=== PATIENT | female | born 1955 | race Caucasian/White ===

== ENCOUNTER 2020-09-05 18:08 | Inpatient (IN) ==
[2020-09-05] MEDS ORDERED: DEXAMETHASONE 10 MG/ML VIAL IV ONE (18:48)
--- NOTE | 2020-09-05 18:51 | Emergency Department Note ---
HPI General Chief complaint: Cold/Flu Symptoms Stated complaint: COVID positive Time Seen by Provider: 09/05/20 18:26 Source: patient, family and RN notes reviewed Mode of arrival: ambulatory Limitations: no limitations History of Present Illness HPI Narrative: Narrative: This patient has been sick for about 10 days with a cough shortness of breath syndrome and tested positive for Covid last Saturday. She has been monitoring her O2 saturation at home and it was 82 to 83% on room air today. She is in the 90s on oxygen here. No headache nausea diarrhea. Onset (ago): day(s) Location: chest Related Data Home Medications Medication Instructions Recorded Confirmed [id number] 1 each PO DAILY 06/15/16 05/23/20 cholecalciferol (vitamin D3) 25 1,000 unit PO QDAY 08/04/19 05/23/20 mcg (1,000 unit) capsule losartan 100 mg tablet 100 mg PO QDAY 08/04/19 09/06/20 omeprazole 20 mg capsule,delayed 20 mg PO QDAY 08/04/19 05/23/20 release onabotulinumtoxinA 100 unit 100 unit IM .COMPLEX each 08/04/19 05/23/20 solution for injection potassium 99 mg tablet 99 mg PO QDAY 08/04/19 05/23/20 pantoprazole 40 mg tablet,delayed 20 mg PO DAILY tab 08/05/19 05/23/20 release carvedilol 12.5 mg PO BID 09/06/20 09/06/20 levothyroxine [Synthroid] 50 mcg PO DAILY 09/06/20 09/06/20 Previous Rx's Medication Instructions Recorded Auto-pap #1 ea 10/30/19 venlafaxine 25 mg tablet 25 mg PO .COMPLEX #14 tab 05/11/20 clonidine HCl 0.1 mg tablet 0.1 mg PO BID #60 tab 05/31/20 Allergies Allergy/AdvReac Type Severity Reaction Status Date / Time No Known Drug Allergies Allergy Unknown Verified 05/23/20 16:35 [NO KNOWN DRUG ALLERGIES] Review of Systems ROS ROS Narrative: Narrative: All systems ED: reviewed and negative except as stated. [facility] Narrative Patient History Narrative: Narrative: Medical/Surgical/Family History All Active Problems (Updated 09/06/20 @ 07:34 by Nelson Mccartney MD) Pneumonia due to 2019 novel coronavirus (Acute) History of cataract surgery (Chronic ~12/2014) History of colonoscopy (Chronic ~2016) History of laparoscopic cholecystectomy (Chronic ~02/08/12) Medication withdrawal (Chronic) Thyroid gland disease (Chronic) Hypersomnia (Chronic) Knee pain (Chronic) Blepharospasm (Chronic) Cough (Chronic) Skin cancer (Chronic) Diverticulosis (Chronic) Infectious mononucleosis (Chronic) Whooping cough (Chronic) Mumps (Chronic) Measles (Chronic) Body mass index (bmi) 30.0-30.9, adult (Chronic) Generalized anxiety disorder (Chronic) Chronic kidney disease, stage 2 (mild) (Chronic) Hypothyroidism, unspecified (Chronic) Essential (primary) hypertension (Chronic) Nicotine dependence (Chronic) Obesity, unspecified (Chronic) Polycystic kidney, adult type (Chronic) Nonrheumatic mitral valve disorder, unspecified (Chronic) Dysthymic disorder (Chronic) Dyspnea, unspecified (Chronic) Gastro-esophageal reflux disease without esophagitis (Chronic) Snoring (Chronic) Hematoma and contusion (Chronic) Fall (Chronic) Medical History (Updated 09/06/20 @ 07:34 by Nelson Mccartney MD) Blepharospasm (Chronic) Body mass index (bmi) 30.0-30.9, adult (Chronic) Chronic kidney disease, stage 2 (mild) (Chronic) Cough (Chronic) Diverticulosis (Chronic) Dyspnea, unspecified (Chronic) Dysthymic disorder (Chronic) Essential (primary) hypertension (Chronic) Fall (Chronic) Gastro-esophageal reflux disease without esophagitis (Chronic) Generalized anxiety disorder (Chronic) Hematoma and contusion (Chronic) Hypersomnia (Chronic) Hypothyroidism, unspecified (Chronic) Infectious mononucleosis (Chronic) Knee pain (Chronic) Measles (Chronic) Mumps (Chronic) Nicotine dependence (Chronic) Nonrheumatic mitral valve disorder, unspecified (Chronic) Obesity, unspecified (Chronic) Polycystic kidney, adult type (Chronic) Skin cancer (Chronic) Snoring (Chronic) Thyroid gland disease (Chronic) Whooping cough (Chronic) Surgical History (Updated 07/07/20 @ 13:15 by Kayley Alvarado) History of cataract surgery (Chronic ~12/2014) History of colonoscopy (Chronic ~2016) History of laparoscopic cholecystectomy (Chronic ~02/08/12) Family History Father , Age 62 Heart disease Mother , Age 83 Tumor Stroke Cancer of unknown origin Family/Other Heart disease "Siblings" Obesity "Siblings" Brother , age 62 Obesity Social History Smoking Status: Former smoker Alcohol Intake Frequency: a few times a month Substance Use: does not use Exam Narrative Narrative: Narrative: General Limitations: no limitations Head Head: Present atraumatic, normocephalic and normal inspection Eye Eye: Present normal appearance and EOMI; Absent scleral icterus and conjunctival injection ENT ENT: Present normal exam, normal oropharynx and mucous membranes moist Neck Neck: Present normal inspection and full ROM Chest Chest: Present normal inspection and symmetric chest wall rise Respiratory Respiratory: Present rales/crackles (Right sided) Cardiovascular Cardiovascular: Present regular rate, normal rhythm and normal heart sounds Adbominal Abdominal: Present soft; Absent distention and tenderness Extremities Extremities: Present normal inspection and full ROM; Absent pedal edema and pretibial edema Neurological Neurological: Present alert Psychiatric Psychiatric: Present normal affect Skin Skin: Present warm (WNL), dry and diaphoresis Course Vital Signs Vital signs: Vital Signs Temperature 98.6 F 09/05/20 18:28 Pulse Rate 78 09/05/20 18:28 Respiratory Rate 20 09/05/20 18:28 Blood Pressure 109/77 09/05/20 18:28 Pulse Oximetry (%) 88 L 09/05/20 18:28 Temperature 98.6 F 09/05/20 18:28 Pulse Rate 69 09/06/20 07:12 Respiratory Rate 20 09/05/20 18:28 Blood Pressure 122/68 09/06/20 07:12 Pulse Oximetry (%) 94 09/06/20 07:12 [facility] MDM Narrative Medical decision making narrative: Narrative: Patient is stable but does require supplemental oxygen so will be admitted. I discussed case with Dr. Oilveros who saw the patient and recommended remdesivir. She also got Decadron Rocephin and Zithromax. We will hold her in the ER tonight until we have staff available in the morning. Lab Data Lab results narrative: Rapid Covid testing was positive. Other lab work is unremarkable. Result diagrams: 09/05/20 18:56 09/05/20 18:56 Labs: Lab Results 09/05/20 09/05/20 09/05/20 Range/Units 18:56 18:56 18:56 WBC 5.4 (4.5-11.0) K/mcL RBC 4.05 (4.00-5.20) M/mcL Hgb 11.2 L (12.0-15.0) g/dL Hct 35.3 L (36.0-48.0) % MCV 87.2 (80.0-100.0) fL MCH 27.7 (26.0-34.0) pg MCHC 31.7 (31.0-36.0) g/dL RDW 14.6 H (11.5-14.5) % Plt Count 183 (140-440) K/mcL MPV 11.0 H (7.4-10.4) fL Neut % (Auto) 61.5 (38.0-78.0) % Lymph % (Auto) 26.8 (15.0-49.0) % [place] % (Auto) 9.5 (1.0-12.0) % Eos % (Auto) 2.0 (0.0-7.0) % Baso % (Auto) 0.2 (0.0-2.0) % Lymph # (Auto) 1.44 L (1.50-4.80) K/mcL [place] # (Auto) 0.51 (0.10-0.90) K/mcL Eos # (Auto) 0.11 (0.00-0.70) K/mcL Baso # (Auto) 0.01 (0.00-0.20) K/mcL Absolute Neutrophils 3.30 (1.80-8.00) K/mcL Sodium 134 (133-145) mmol/L Potassium 3.8 (3.3-5.1) mmol/L Chloride 97 (96-108) mmol/L Carbon Dioxide 24 (22-30) mmol/L Anion Gap 13.0 (8.0-16.0) BUN 17 (8-23) mg/dL Creatinine 1.1 (0.6-1.1) mg/dL GFR Calculation 52 Glucose 119 H (70-105) mg/dL Calcium 8.9 (8.6-10.4) mg/dL Total Bilirubin 0.3 (0.1-1.0) mg/dL AST 16 (<32) U/L ALT 12 (<40) U/L Alkaline Phosphatase 67 (39-117) U/L Troponin T < 0.01 (<0.03) ng/mL NT-Pro-B Natriuret Pep 38.4 (<125.0) pg/mL Total Protein 6.7 (5.9-8.4) gm/dL Albumin 3.7 (3.2-5.2) gm/dL Globulin 3.0 (2.2-3.7) gm/dL Albumin/Globulin Ratio 1.2 (1.0-2.3) Urine Color Urine Appearance (Clear) Urine pH (5.0-9.0) Ur Specific [place] (1.000-1.035) Urine Protein (Negative) mg/dL Urine Glucose (UA) (Negative) mg/dL Urine Ketones (Negative) mg/dL Urine Occult Blood (Negative) mg/dL Urine Nitrate (Negative) Urine Bilirubin (Negative) mg/dL Urine Urobilinogen mg/dL Ur Leukocyte Esterase (Negative) /ug Urine RBC (0-1) /hpf Urine WBC (0-4) /hpf Ur Squamous Epith Cells (0-4) /hpf Urine Bacteria (0) /hpf Urine Mucus (None) /hpf Ur Culture Indicated? 09/05/20 Range/Units 21:08 WBC (4.5-11.0) K/mcL RBC (4.00-5.20) M/mcL Hgb (12.0-15.0) g/dL Hct (36.0-48.0) % MCV (80.0-100.0) fL MCH (26.0-34.0) pg MCHC (31.0-36.0) g/dL RDW (11.5-14.5) % Plt Count (140-440) K/mcL MPV (7.4-10.4) fL Neut % (Auto) (38.0-78.0) % Lymph % (Auto) (15.0-49.0) % [place] % (Auto) (1.0-12.0) % Eos % (Auto) (0.0-7.0) % Baso % (Auto) (0.0-2.0) % Lymph # (Auto) (1.50-4.80) K/mcL [place] # (Auto) (0.10-0.90) K/mcL Eos # (Auto) (0.00-0.70) K/mcL Baso # (Auto) (0.00-0.20) K/mcL Absolute Neutrophils (1.80-8.00) K/mcL Sodium (133-145) mmol/L Potassium (3.3-5.1) mmol/L Chloride (96-108) mmol/L Carbon Dioxide (22-30) mmol/L Anion Gap (8.0-16.0) BUN (8-23) mg/dL Creatinine (0.6-1.1) mg/dL GFR Calculation Glucose (70-105) mg/dL Calcium (8.6-10.4) mg/dL Total Bilirubin (0.1-1.0) mg/dL AST (<32) U/L ALT (<40) U/L Alkaline Phosphatase (39-117) U/L Troponin T (<0.03) ng/mL NT-Pro-B Natriuret Pep (<125.0) pg/mL Total Protein (5.9-8.4) gm/dL Albumin (3.2-5.2) gm/dL Globulin (2.2-3.7) gm/dL Albumin/Globulin Ratio (1.0-2.3) Urine Color Yellow Urine Appearance Clear (Clear) Urine pH 6.0 (5.0-9.0) Ur Specific [place] 1.016 (1.000-1.035) Urine Protein 30 A (Negative) mg/dL Urine Glucose (UA) Negative (Negative) mg/dL Urine Ketones Negative (Negative) mg/dL Urine Occult Blood Negative (Negative) mg/dL Urine Nitrate Negative (Negative) Urine Bilirubin Negative (Negative) mg/dL Urine Urobilinogen Negative mg/dL Ur Leukocyte Esterase 250 A (Negative) /ug Urine RBC 0 (0-1) /hpf Urine WBC 21 H (0-4) /hpf Ur Squamous Epith Cells < 1 (0-4) /hpf Urine Bacteria None (0) /hpf Urine Mucus Few A (None) /hpf Ur Culture Indicated? yes Radiology Data Radiology results reviewed: Yes I reviewed the patient's radiology results. Radiology results narrative: Chest x-ray showed moderate bilateral infiltrates worse on the right. Discharge Plan Patient/Caregiver Discharge Instructions Pt seen by [facility]/PA only: No Clinical Impression: Pneumonia due to 2019 novel coronavirus Patient Disposition: Xfer As Inpt ([facility]) Condition: Fair Follow up with: Helder Mendez MD [Primary Care Provider] - Prescriptions: No Action (DME) Auto-pap Qty: 1 RF: 0 clonidine HCl 0.1 mg tablet 0.1 mg PO BID Qty: 60 RF: 0 Botox 100 unit recon soln 100 unit IM .COMPLEX RF: 0 losartan 100 mg tablet 100 mg PO QDAY RF: 0 omeprazole 20 mg capsule,delayed release(DR/EC) 20 mg PO QDAY RF: 0 cholecalciferol (vitamin D3) 1,000 unit capsule 1,000 unit PO QDAY RF: 0 potassium 99 mg tablet 99 mg PO QDAY RF: 0 venlafaxine 25 mg tablet 25 mg PO .COMPLEX Qty: 14 RF: 0 yz-cq-LT-vit P-[id number]-ico-coQ10 1 EACH capsule 1 each PO DAILY RF: 0 pantoprazole 40 mg tablet,delayed release (DR/EC) 20 mg PO DAILY RF: 0 carvedilol 12.5 mg tablet 12.5 mg PO BID RF: 0 levothyroxine [Synthroid] 50 mcg tablet 50 mcg PO DAILY RF: 0
--- NOTE | 2020-09-05 19:03 | XRay Report ---
HISTORY: Covid infection with shortness of breath FINDINGS: There are bilateral alveolar infiltrates with the greatest involvement in the lower lobes. There is milder involvement in the mid and upper lung joaquin. Left diaphragm is mildly elevated. No pleural effusion is seen. The heart size is normal. No adenopathy is detected. IMPRESSION: Moderate bilateral pneumonia, left worse than right Interpreted and Authenticated by: Cm Louis 09/05/20
[2020-09-05 19:32] LABS: Basophils # (Auto) 0.01 K/mcL (0.00-0.20); Basophils % (Auto) 0.2 % (0.0-2.0); Eosinophils # (Auto) 0.11 K/mcL (0.00-0.70); Hematocrit 35.3 % (36.0-48.0); Hemoglobin 11.2 g/dL (12.0-15.0); Lymphocytes # (Auto) 1.44 K/mcL (1.50-4.80); Lymphocytes % (Auto) 26.8 % (15.0-49.0); Mean Cell Volume 87.2 fL (80.0-100.0); Mean Corpuscular HGB Conc 31.7 g/dL (31.0-36.0); Monocytes # (Auto) 0.51 K/mcL (0.10-0.90); Monocytes % (Auto) 9.5 % (1.0-12.0); Neutrophils % (Auto) 61.5 % (38.0-78.0); Platelet Count 183 K/mcL (140-440); RBC 4.05 M/mcL (4.00-5.20); Red Cell Distribution Width 14.6 % (11.5-14.5); WBC 5.4 K/mcL (4.5-11.0)
[2020-09-05] MEDS: LACTATED RINGERS 1,000 ML IV SCH (19:34)
[2020-09-05 19:51] LABS: proBNP 38.4 pg/mL (<125.0)
[2020-09-05 19:54] LABS: ALT/SGPT 12 U/L (<40); AST/SGOT 16 U/L (<32); Albumin 3.7 gm/dL (3.2-5.2); Albumin/Globulin Ratio 1.2 (1.0-2.3); Alkaline Phosphatase 67 U/L (39-117); Bilirubin,Total 0.3 mg/dL (0.1-1.0); Blood Urea Nitrogen 17 mg/dL (8-23); Calcium 8.9 mg/dL (8.6-10.4); Carbon Dioxide 24 mmol/L (22-30); Chloride 97 mmol/L (96-108); Glomerular Filtration Rate 52; Glucose 119 mg/dL (70-105)
[2020-09-05] MEDS ORDERED: cefTRIAXone 2 GM in DEXTROSE 5% IN WATER 50 ML IV ONE (20:05)
[2020-09-05] MEDS ORDERED: AZITHROMYCIN 500 MG in DEXTROSE 5% IN WATER 250 ML IV ONE (20:05)
[2020-09-05] MEDS ORDERED: REMDESIVIR 200 MG in 0.9 % SODIUM CHLORIDE 250 ML IV ONE (20:10)
--- NOTE | 2020-09-05 21:08 | Internal Med History&Physical ---
HPI History of Present Illness Patient information: Note initiated : 09/05/20 at 9:04 pm Service Date, if different from initiated Date: [] Patient: Jyoti Martinez a 65 y/o F admitted on for COVID positive. Chief Complaint: URI symptoms/shortness of breath History of present illness: Ms. Martinez is a 65 year old F with a history of hypertension/hypothyroidism/anxiety disorder who presents to the ER with 10 days onset of URI symptoms with deterioration in respiratory status after noting her saturation dropping to mid 80s. She was tested positive for Covid 2 days prior to presentation. Initial work-up in the ER was consistent with profound hyp oxia requiring 3 L oxygen and bilateral pneumonia on chest imaging. Patient was started on remdesivir/dexamethasone and subsequently hospitalist service was consulted. At the time of my evaluation patient is alert and oriented. She was able to answer most of the questions. She lives with her and denies travel. She denies shaking chills, headache, photophobia endorses myalgia weakness fatigue. She denies productive cough. She endorses to loss of taste but denies rash, joint pain, diarrhea, dysuria. Review of systems 10 point review system was performed and is negative except for ones discussed above PFSH PFSH All Active Problems (Updated 09/06/20 @ 07:34 by Nelson Mccartney MD) Pneumonia due to 2019 novel coronavirus (Acute) History of cataract surgery (Chronic ~12/2014) History of colonoscopy (Chronic ~2016) History of laparoscopic cholecystectomy (Chronic ~02/08/12) Medication withdrawal (Chronic) Thyroid gland disease (Chronic) Hypersomnia (Chronic) Knee pain (Chronic) Blepharospasm (Chronic) Cough (Chronic) Skin cancer (Chronic) Diverticulosis (Chronic) Infectious mononucleosis (Chronic) Whooping cough (Chronic) Mumps (Chronic) Measles (Chronic) Body mass index (bmi) 30.0-30.9, adult (Chronic) Generalized anxiety disorder (Chronic) Chronic kidney disease, stage 2 (mild) (Chronic) Hypothyroidism, unspecified (Chronic) Essential (primary) hypertension (Chronic) Nicotine dependence (Chronic) Obesity, unspecified (Chronic) Polycystic kidney, adult type (Chronic) Nonrheumatic mitral valve disorder, unspecified (Chronic) Dysthymic disorder (Chronic) Dyspnea, unspecified (Chronic) Gastro-esophageal reflux disease without esophagitis (Chronic) Snoring (Chronic) Hematoma and contusion (Chronic) Fall (Chronic) Medical History (Updated 09/06/20 @ 07:34 by Nelson Mccartney MD) Blepharospasm (Chronic) Body mass index (bmi) 30.0-30.9, adult (Chronic) Chronic kidney disease, stage 2 (mild) (Chronic) Cough (Chronic) Diverticulosis (Chronic) Dyspnea, unspecified (Chronic) Dysthymic disorder (Chronic) Essential (primary) hypertension (Chronic) Fall (Chronic) Gastro-esophageal reflux disease without esophagitis (Chronic) Generalized anxiety disorder (Chronic) Hematoma and contusion (Chronic) Hypersomnia (Chronic) Hypothyroidism, unspecified (Chronic) Infectious mononucleosis (Chronic) Knee pain (Chronic) Measles (Chronic) Mumps (Chronic) Nicotine dependence (Chronic) Nonrheumatic mitral valve disorder, unspecified (Chronic) Obesity, unspecified (Chronic) Polycystic kidney, adult type (Chronic) Skin cancer (Chronic) Snoring (Chronic) Thyroid gland disease (Chronic) Whooping cough (Chronic) Surgical History (Updated 07/07/20 @ 13:15 by Kayley Alvarado) History of cataract surgery (Chronic ~12/2014) History of colonoscopy (Chronic ~2016) History of laparoscopic cholecystectomy (Chronic ~02/08/12) Family History Father , Age 62 Heart disease Mother , Age 83 Tumor Stroke Cancer of unknown origin Family/Other Heart disease "Siblings" Obesity "Siblings" Brother , age 62 Obesity Social History marital status: occupational status: employed occupation: [employer] smoking status: Former smoker smoking status stop date: 10/14/10 alcohol intake frequency: a few times a month substance use type: does not use MEDS/ALLERGIES Home Medications and Allergies Home Medications Medication Instructions Recorded Confirmed Type losartan 100 mg tablet 100 mg PO QDAY 08/04/19 09/06/20 History omeprazole 20 mg capsule,delayed 20 mg PO QDAY 08/04/19 09/06/20 History release onabotulinumtoxinA 100 unit 100 unit IM .COMPLEX each 08/04/19 09/06/20 History solution for injection Auto-pap #1 ea 10/30/19 09/06/20 Rx clonidine HCl 0.1 mg tablet 0.1 mg PO BID #60 tab 05/31/20 09/06/20 Rx amlodipine 5 mg PO DAILY 09/06/20 09/06/20 History benzonatate 100 mg PO Q8HP PRN 09/06/20 09/06/20 History carvedilol 12.5 mg PO BID 09/06/20 09/06/20 History hydrochlorothiazide 12.5 mg PO DAILY 09/06/20 09/06/20 History levothyroxine [Synthroid] 50 mcg PO DAILY 09/06/20 09/06/20 History promethazine-DM 5 ml PO Q6HP PRN 09/06/20 09/06/20 History venlafaxine 150 mg PO DAILY 09/06/20 09/06/20 History Allergies Allergy/AdvReac Type Severity Reaction Status Date / Time No Known Drug Allergies Allergy Unknown Verified 05/23/20 16:35 [NO KNOWN DRUG ALLERGIES] EXAM Constitutional Vitals: Temp Pulse Resp BP Pulse Ox 98.6 F 76 20 115/94 92 09/05/20 18:28 09/05/20 20:16 09/05/20 18:28 09/05/20 20:16 09/05/20 20:16 Alert oriented Head normocephalic Oral cavity moist No ear nose discharge Eye movement symmetrical Neck supple no lymphadenopathy S1-S2 occasionally irregular Nonlabored breathing on 3 L oxygen Nondistended nontender abdomen Lower extremity no cyanosis clubbing or joint swelling Skin no suspicious lesion Psych anxious no hallucination delusion Neuro normal higher function DATA Data Completed and Pending Labs: Labs from last 24 hours 09/05/20 09/05/20 09/05/20 18:56 18:56 18:56 WBC 5.4 RBC 4.05 Hgb 11.2 L Hct 35.3 L MCV 87.2 MCH 27.7 MCHC 31.7 RDW 14.6 H Plt Count 183 MPV 11.0 H Neut % (Auto) 61.5 Lymph % (Auto) 26.8 [place] % (Auto) 9.5 Eos % (Auto) 2.0 Baso % (Auto) 0.2 Lymph # (Auto) 1.44 L [place] # (Auto) 0.51 Eos # (Auto) 0.11 Baso # (Auto) 0.01 Absolute Neutrophils 3.30 Sodium 134 Potassium 3.8 Chloride 97 Carbon Dioxide 24 Anion Gap 13.0 BUN 17 Creatinine 1.1 GFR Calculation 52 Glucose 119 H Calcium 8.9 Total Bilirubin 0.3 AST 16 ALT 12 Alkaline Phosphatase 67 Troponin T < 0.01 NT-Pro-B Natriuret Pep 38.4 Total Protein 6.7 Albumin 3.7 Globulin 3.0 Albumin/Globulin Ratio 1.2 A/P Narrative A/P Narrative: * COVID-19 pneumonia-initiate remdesivir/dexamethasone. Continue Covid precautions. Admit to PCU in light of acute hypoxic respiratory failure * Acute hypoxic respiratory failure secondary to Covid pneumonia. Currently on 3 L oxygen. Multifocal bilateral chest infiltrates. Continue low flow oxygen/bronchodilators * History of hypertension continue home dose Coreg/losartan/thiazide/amlodipine * Hypothyroidism continue thyroxine * GERD continue PPI * anxiety disorder continue venlafaxine * Full code * Prophylaxis heparin Plan * Inpatient PCU admission * Supplemental oxygen * Remdesivir/dexamethasone * Wean oxygen as tolerated * Inflammatory marker follow-up * Pre-existing medical condition management home meds * nutrition support Time Spent With Patient Time: Total time spent is greater than 50% in coordination of care (as documented) at patient's floor/unit and/or counseling patient:
[2020-09-05 21:43] LABS: Appearance,Urine CLEAR (Clear); Bilirubin,Urine Negative (Negative); Color,Urine YELLOW; Culture Indicated,Urine yes; Glucose,Urine (UA) Negative (Negative); Ketones,Urine Negative (Negative); Leukocyte Esterase,Urine 250 /ug (Negative); Mucus,Urine FEW /hpf; Nitrate,Urine Negative (Negative); Protein,Urine 30 mg/dL (Negative); Specific Gravity,Urine 1.016 (1.000-1.035); Urine Blood Negative (Negative); Urine RBC 0 /hpf (0-1); Urine Squamous Epithelial Cell < 1 /hpf (0-4); Urine WBC 21 /hpf (0-4); Urobilinogen,Urine Negative
[2020-09-05] MEDS ORDERED: ONDANSETRON 4 MG/2 ML VIAL IV ONE (22:24)
[2020-09-05] MEDS ORDERED: HYDROmorphone 0.5 MG/0.5 ML SYRINGE IV PRN (22:24)
[2020-09-06] MEDS ORDERED: POLYETHYLENE GLYCOL 3350 17 GM PACKET PO PRN ×2 (07:47→08:00)
[2020-09-06] MEDS ORDERED: ACETAMINOPHEN 650 MG/65 ML BOTTLE IV PRN ×2 (07:47→08:00)
[2020-09-06] MEDS ORDERED: POTASSIUM CHLORIDE 40 MEQ in DEXTROSE 5% IN WATER 500 ML IV PRN ×2 (07:47→08:00)
[2020-09-06] MEDS ORDERED: cefTRIAXone 2 GM in DEXTROSE 5% IN WATER 50 ML IV SCH ×2 (07:47→15:00)
[2020-09-06] MEDS ORDERED: POTASSIUM CHLORIDE 20 MEQ PACKET PO PRN ×2 (07:47→08:00)
[2020-09-06] MEDS ORDERED: REMDESIVIR 100 MG in 0.9 % SODIUM CHLORIDE 250 ML IV SCH (07:47)
[2020-09-06] MEDS ORDERED: ONDANSETRON 4 MG ODT TABLET SL PRN ×2 (07:47→08:00)
[2020-09-06] MEDS ORDERED: MAGNESIUM SULFATE 2 GM/50 ML BAG IV PRN ×2 (07:47→08:00)
[2020-09-06] MEDS ORDERED: ONDANSETRON 4 MG/2 ML VIAL IV PRN ×2 (07:47→08:00)
[2020-09-06] MEDS ORDERED: hydrALAZINE 20 MG/ML VIAL IV PRN ×2 (07:47→08:00)
[2020-09-06] MEDS ORDERED: MELATONIN 3 MG TABLET PO PRN ×2 (07:47→08:00)
[2020-09-06] MEDS ORDERED: BISACODYL 10 MG SUPP.RECT PR PRN ×2 (07:47→08:00)
[2020-09-06] MEDS ORDERED: METOPROLOL TARTRATE 5 MG/5 ML VIAL IV PRN ×2 (07:47→08:00)
[2020-09-06] MEDS ORDERED: ACETAMINOPHEN 325 MG TABLET PO PRN ×2 (07:47→08:00)
[2020-09-06] MEDS ORDERED: HEPARIN 5,000 UNIT/ML VIAL SQ SCH (09:00)
[2020-09-06] MEDS ORDERED: CARVEDILOL 12.5 MG TABLET PO SCH (09:00)
[2020-09-06] MEDS ORDERED: DEXAMETHASONE 4 MG TABLET PO SCH (09:00)
[2020-09-06] MEDS ORDERED: LOSARTAN 50 MG TABLET PO SCH (09:00)
[2020-09-06] MEDS ORDERED: MULTIVIT,THER IRON,CA,FA & MIN 1 TABLET PO SCH (09:00)
[2020-09-06] MEDS ORDERED: HYDROXYCHLOROQUINE 200 MG TABLET PO SCH (09:00)
[2020-09-06] MEDS ORDERED: DOCUSATE SODIUM 100 MG CAPSULE PO SCH (09:00)
[2020-09-06] MEDS ORDERED: LEVOTHYROXINE 50 MCG TABLET PO SCH ×2 (09:00)
[2020-09-06] MEDS ORDERED: cloNIDine HCL 0.1 MG TABLET PO SCH ×2 (09:00)
[2020-09-06] MEDS: LACTATED RINGERS 1,000 ML IV SCH ×3 (09:45→09:51)
[2020-09-06] MEDS: cefTRIAXone 2 GM in DEXTROSE 5% IN WATER 50 ML IV SCH (10:31)
[2020-09-06] MEDS: HEPARIN 5,000 UNIT/ML VIAL SQ SCH ×2 (10:35→20:30)
[2020-09-06] MEDS: CARVEDILOL 12.5 MG TABLET PO SCH ×2 (10:35→17:05)
[2020-09-06] MEDS: DOCUSATE SODIUM 100 MG CAPSULE PO SCH ×2 (10:35→20:30)
[2020-09-06] MEDS: LOSARTAN 50 MG TABLET PO SCH (10:36)
[2020-09-06] MEDS: MULTIVIT,THER IRON,CA,FA & MIN 1 TABLET PO SCH (10:36)
[2020-09-06] MEDS: DEXAMETHASONE 4 MG TABLET PO SCH (11:06)
[2020-09-06] MEDS: 0.9 % SODIUM CHLORIDE 10 ML SYRINGE IV SCH ×2 (12:59→20:31)
[2020-09-06] MEDS: REMDESIVIR 100 MG in 0.9 % SODIUM CHLORIDE 250 ML IV SCH (12:59)
[2020-09-06] MEDS ORDERED: BENZONATATE 100 MG CAPSULE PO PRN (13:24)
[2020-09-06] MEDS ORDERED: 0.9 % SODIUM CHLORIDE 10 ML SYRINGE IV SCH (14:00)
--- NOTE | 2020-09-06 14:11 | Internal Med Progress Note ---
SUBJECTIVE Subjective Patient information: Note initiated : 09/06/20 at 2:09 pm Service Date, if different from initiated Date: [] Patient: Jyoti Martinez a 65 y/o F admitted on 09/06/20 for COVID Positive, Pneumonia. Chief Complaint: History of present illness: Ms. Martinez is a 65 year old F with a history of hypertension/hypothyroidism/anxiety disorder who presents to the ER with 10 days onset of URI symptoms with deterioration in respiratory status after noting her saturation dropping to mid 80s. She was tested positive for Covid 2 days prior to presentation. Initial work-up in the ER was consistent with profound hypoxia requiring 3 L oxygen and bilateral pneumonia on chest imaging. Patient was started on remdesivir/dexamethasone and subsequently hospitalist service was consulted. At the time of my evaluation patient is alert and oriented. She was able to answer most of the questions. She lives with her and denies travel. She denies shaking chills, headache, photophobia endorses myalgia weakness fatigue. She denies productive cough. She endorses to loss of taste but denies rash, joint pain, diarrhea, dysuria. 09/06-patient clinically deteriorating with increasing need for oxygen at 6 L. Overnight afebrile.Stable labs and hemodynamics. Remdesivir day 2/de xamethasone. Restart home medications. UA pyuria. Initiate antibiotic coverage. Constitutional Vitals: Vital Signs Temp Pulse Resp BP Pulse Ox 98.1 F 78 17 117/75 92 09/06/20 13:29 09/06/20 13:29 09/06/20 13:29 09/06/20 12:01 09/06/20 13:29 Period Temp Pulse Resp BP Sys/Srivastava Pulse Ox Last 24 Hr 97.8 F-98.6 F 59-86 17-22 104-135/61-94 87-99 Intake and Output 09/06/20 09/06/20 09/06/20 05:59 13:59 21:59 Intake Total 1500 240 Balance 1500 240 Weight 92.986 kg Patient Weight 09/07/20 05:59 Weight 92.986 kg On 6 L oxygen Labored breathing No anxiety No lymphedema Intake & Output: Intake & Output 09/06/20 09/06/20 09/06/20 05:59 13:59 21:59 Intake Total 1500 240 Balance 1500 240 Weight 92.986 kg Intake: IV 1500 Zithromax 500 mg In Dextrose 5% 250 in Water 250 ml @ 250 mls/hr IV ONCE ONE Rx#:[id number] Lactated Ringers 1,000 ml @ 250 1000 mls/hr IV .Q4H [facility] Rx#: [id number] Veklury 200 mg In Sodium 250 Chloride 0.9% 250 ml @ 500 mls/ hr IV ONCE ONE Rx#:[id number] Oral 240 Other: Meal Breakfast Percent of Meal Consumed 100% OBJ DATA Labs CBC & Chem 7: 09/05/20 18:56 09/05/20 18:56 Labs: Abnormal Lab Results 09/05/20 09/05/20 09/05/20 21:08 18:56 18:56 Hgb 11.2 L Hct 35.3 L RDW 14.6 H MPV 11.0 H Lymph # (Auto) 1.44 L Glucose 119 H Urine Protein 30 A Ur Leukocyte Esterase 250 A Urine WBC 21 H Urine Mucus Few A Meds: Medications Acetaminophen (Tylenol) 650 mg PO Q4-6HP PRN; Protocol PRN Reason: Per Pain Protocol/Fever > 101 Amlodipine Besylate (Norvasc) 5 mg PO DAILY [facility] Benzonatate (Tessalon) 100 mg PO Q8HP PRN PRN Reason: Cough Bisacodyl (Dulcolax) 10 mg MT Q2-3DAYS PRN PRN Reason: Constipation [facility] Last Admin: 09/06/20 10:35 Dose: 12.5 mg Documented by: Dexamethasone (Decadron) 6 mg PO DAILY [facility] Last Admin: 09/06/20 11:06 Dose: 6 mg Documented by: Docusate Sodium (Colace) 100 mg PO BID [facility] Last Admin: 09/06/20 10:35 Dose: 100 mg Documented by: Heparin Sodium (Porcine) (Heparin) 5,000 unit SQ Q12 [facility] Last Admin: 09/06/20 10:35 Dose: 5,000 unit Documented by: Hydralazine HCl (Apresoline) 10 mg IV Q4-6HP PRN PRN Reason: Hypertension Hydrochlorothiazide (Oretic) 12.5 mg PO DAILY [facility] Ceftriaxone Sodium 2 gm/ (Dextrose) 50 mls @ 100 mls/hr IV Q24H [facility]; Protocol Last Admin: 09/06/20 10:31 Dose: 100 mls/hr Documented by: REMDESIVIR 100 mg/ Sodium (Chloride) 250 mls @ 500 mls/hr IV Q24H [facility] Stop: 09/09/20 13:29 Last Admin: 09/06/20 12:59 Dose: 500 mls/hr Documented by: Acetaminophen (Ofirmev) 650 mg in 65 mls @ 130 mls/hr IV Q6HP PRN; Protocol PRN Reason: Per Pain Protocol/Fever > 101 Magnesium Sulfate (Magnesium Sulfate) 2 gm in 50 mls @ 50 mls/hr IV UD PRN PRN Reason: MG = or < 1.7 Potassium Chloride 40 meq/ (Dextrose) 520 mls @ 130 mls/hr IV UD PRN PRN Reason: K+ = or < 3.5 Iron Carb/Multivit/Roane/Folic Acid (Multivitamin W/Minerals) 1 tab PO DAILY [facility] Last Admin: 09/06/20 10:36 Dose: 1 tab Documented by: Levothyroxine Sodium (Synthroid) 50 mcg PO DAILY [facility] Last Admin: 09/06/20 11:06 Dose: 50 mcg Documented by: Losartan Potassium (Cozaar) 100 mg PO DAILY [facility] Last Admin: 09/06/20 10:36 Dose: 100 mg Documented by: Melatonin (Melatonin 3mg Tablet) 3 mg PO HSP PRN PRN Reason: Insomnia Metoprolol Tartrate (Lopressor) 5 mg IV Q5M PRN PRN Reason: Heart Rate > 140 bpm Omeprazole (Prilosec) 20 mg PO QDAY [facility] Ondansetron HCl (Zofran Odt) 4 mg SL Q4-6HP PRN; Protocol PRN Reason: Nausea And Vomiting Ondansetron HCl (Zofran) 4 mg IV Q4-6HP PRN; Protocol PRN Reason: Nausea And Vomiting Polyethylene Glycol (Miralax) 17 gm PO DAILYP PRN PRN Reason: Constipation Potassium Chloride (Klor-Con) 40 meq PO DAILYP PRN PRN Reason: K+ < 3.5 Senna/Docusate Sodium (Senna Plus Tablet) 1 tab PO [facility] Sodium Chloride (Saline Flush) 10 ml IV Q8 [facility] Last Admin: 09/06/20 12:59 Dose: 10 ml Documented by: Venlafaxine HCl (Effexor Xr) 150 mg PO DAILY [facility] A/P Narrative A/P Narrative: * COVID-19 pneumonia-initiate remdesivir/dexamethasone. Continue Covid precautions. * Acute hypoxic respiratory failure secondary to Covid pneumonia. Worsening now on 6 L O2 . Multifocal bilateral chest infiltrates. Continue low flow oxygen/bronchodilators, serial imaging * Acute cystitis with pyuria. Start antibiotic coverage * History of hypertension stable on home dose Coreg/losartan/thiazide/amlodipine * Hypothyroidism continue thyroxine * GERD continue PPI * anxiety disorder continue venlafaxine * Full code * Prophylaxis heparin Plan * Low-flow oxygen * Remdesivir/dexamethasone * Start antibiotic coverage * Inflammatory marker follow-up * Pre-existing medical condition management home meds * nutrition support Time Spent With Patient Time: Total time spent is greater than 50% in coordination of care (as documented) at patient's floor/unit and/or counseling patient: QUALITY VTE Deep Vein Thrombosis/Pulmonary Embolism Present on Admission: No
[2020-09-06 15:45] LABS: Ferritin 98.4 ng/mL (30.0-400.0)
[2020-09-06] MEDS: SENNOSIDES/DOCUSATE SODIUM 1 TAB TABLET PO SCH (20:30)
[2020-09-06] MEDS ORDERED: SENNOSIDES/DOCUSATE SODIUM 1 TAB TABLET PO SCH (21:00)
[2020-09-07] MEDS: 0.9 % SODIUM CHLORIDE 10 ML SYRINGE IV SCH ×3 (05:24→20:29)
[2020-09-07 06:32] LABS: Basophils # (Auto) 0.01 K/mcL (0.00-0.20); Basophils % (Auto) 0.2 % (0.0-2.0); Eosinophils # (Auto) 0 K/mcL (0.00-0.70); Eosinophils % (Auto) 0 % (0.0-7.0); Hematocrit 37.1 % (36.0-48.0); Hemoglobin 11.8 g/dL (12.0-15.0); Lymphocytes # (Auto) 1.42 K/mcL (1.50-4.80); Lymphocytes % (Auto) 22.1 % (15.0-49.0); Mean Cell Volume 86.3 fL (80.0-100.0); Mean Corpuscular HGB Conc 31.8 g/dL (31.0-36.0); Mean Platelet Volume 11.3 fL (7.4-10.4); Monocytes % (Auto) 7.8 % (1.0-12.0); Neutrophils % (Auto) 69.9 % (38.0-78.0); Platelet Count 204 K/mcL (140-440); Red Cell Distribution Width 14.4 % (11.5-14.5); WBC 6.4 K/mcL (4.5-11.0)
[2020-09-07 07:20] LABS: ALT/SGPT 12 U/L (<40); AST/SGOT 14 U/L (<32); Albumin 3.8 gm/dL (3.2-5.2); Albumin/Globulin Ratio 1.2 (1.0-2.3); Alkaline Phosphatase 63 U/L (39-117); Bilirubin,Direct < 0.2 mg/dL (<0.3); Bilirubin,Total 0.2 mg/dL (0.1-1.0); Blood Urea Nitrogen 28 mg/dL (8-23); Calcium 8.9 mg/dL (8.6-10.4); Carbon Dioxide 25 mmol/L (22-30); Chloride 105 mmol/L (96-108); Globulin 3.1 gm/dL (2.2-3.7); Glomerular Filtration Rate 59; Glucose 135 mg/dL (70-105); Lactate Dehydrogenase 201 U/L (135-225); Phosphorous 4.4 mg/dL (2.5-4.5); Triglycerides 57 mg/dL (<150)
[2020-09-07] MEDS: LEVOTHYROXINE 50 MCG TABLET PO SCH (08:02)
[2020-09-07] MEDS: OMEPRAZOLE 20 MG CAPSULE PO SCH (08:02)
[2020-09-07] MEDS: CARVEDILOL 12.5 MG TABLET PO SCH ×2 (08:02→17:31)
[2020-09-07] MEDS: LOSARTAN 50 MG TABLET PO SCH (08:23)
[2020-09-07] MEDS: HEPARIN 5,000 UNIT/ML VIAL SQ SCH ×2 (08:23→20:29)
[2020-09-07] MEDS: DEXAMETHASONE 4 MG TABLET PO SCH (08:23)
[2020-09-07] MEDS: MULTIVIT,THER IRON,CA,FA & MIN 1 TABLET PO SCH (08:24)
[2020-09-07] MEDS: VENLAFAXINE 150 MG CAP.XL.24H PO SCH (08:24)
[2020-09-07] MEDS: HYDROCHLOROTHIAZIDE 12.5 MG CAPSULE PO SCH (08:24)
[2020-09-07] MEDS: DOCUSATE SODIUM 100 MG CAPSULE PO SCH ×2 (08:24→20:29)
[2020-09-07] MEDS: amLODIPine 5 MG TABLET PO SCH (08:24)
[2020-09-07] MEDS: cefTRIAXone 2 GM in DEXTROSE 5% IN WATER 50 ML IV SCH (08:26)
[2020-09-07] MEDS ORDERED: OMEPRAZOLE 20 MG CAPSULE PO SCH (09:00)
[2020-09-07] MEDS: REMDESIVIR 100 MG in 0.9 % SODIUM CHLORIDE 250 ML IV SCH (09:15)
--- NOTE | 2020-09-07 10:42 | Internal Med Progress Note ---
SUBJECTIVE Subjective Patient information: Note initiated : 09/07/20 at 10:39 am Service Date, if different from initiated Date: [] Patient: Jyoti Martinez a 65 y/o F admitted on 09/06/20 for COVID Positive, Pneumonia. Chief Complaint: [] Interval history: Ms. Martinez is a 65 year old F with a history of hypertension/hypothyroidism/anxiety disorder who presents to the ER with 10 days onset of URI symptoms with deterioration in respiratory status after noting her saturation dropping to mid 80s. She was tested positive for Covid 2 days prior to presentation. Initial work-up in the ER was consistent with profound hypoxia requiring 3 L oxygen and bilateral pneumonia on chest imaging. Patient was started on remdesivir/dexamethasone and subsequently hospitalist service was consulted. At the time of my evaluation patient is alert and oriented. She was able to answer most of the questions. She lives with her and denies travel. She denies shaking chills, headache, photophobia endorses myalgia weakness fatigue. She denies productive cough. She endorses to loss of taste but denies rash, joint pain, diarrhea, dysuria. 09/06-patient clinically deteriorating with increasing need for oxygen at 6 L. Overnight afebrile.Stable labs and hemodynamics. Remdesivir day 2/dexamethasone. Restart home medications. UA pyuria. Initiate antibiotic coverage. 09/07-patient clinically improving. No overnight events. Currently on 3 L o xygen down from 6 L the previous day. On day 3/5 remdesivir. Maintaining Covid precautions. Feels better than previous day and in good spirits. No overnight telemetry events or concerns per staff. No fever chills. Constitutional Vitals: Vital Signs Temp Pulse Resp BP Pulse Ox 97.5 F 58 L 16 132/83 95 09/07/20 04:01 09/07/20 06:21 09/07/20 08:01 09/07/20 08:01 09/07/20 08:01 Period Temp Pulse Resp BP Sys/Srivastava Pulse Ox Last 24 Hr 97.2 F-98.2 F 56-85 13-27 110-132/73-105 88-100 Intake and Output 09/06/20 09/07/20 09/07/20 21:59 05:59 13:59 Intake Total 480 Output Total 500 850 Balance 480 -500 -850 Weight 95.708 kg Alert oriented Nonlabored breathing on 3 L oxygen No anxiety In good spirits Intake & Output: Intake & Output 09/06/20 09/07/20 09/07/20 21:59 05:59 13:59 Intake Total 480 Output Total 500 850 Balance 480 -500 -850 Weight 95.708 kg Intake: Oral 480 Output: Void Amount 500 850 Other: Meal Dinner Percent of Meal Consumed 100% Feeding Ability Independent Urine Appearance Clear Urine Color Bright Yellow # Voids 1 OBJ DATA Labs CBC & Chem 7: 09/07/20 05:13 09/07/20 05:13 Labs: Abnormal Lab Results 09/07/20 09/07/20 09/05/20 05:13 05:13 21:08 Hgb 11.8 L Hct RDW MPV 11.3 H Lymph # (Auto) 1.42 L BUN 28 H Glucose 135 H C-Reactive Protein 2.70 H Urine Protein 30 A Ur Leukocyte Esterase 250 A Urine WBC 21 H Urine Mucus Few A 09/05/20 09/05/20 18:56 18:56 Hgb 11.2 L Hct 35.3 L RDW 14.6 H MPV 11.0 H Lymph # (Auto) 1.44 L BUN Glucose 119 H C-Reactive Protein Urine Protein Ur Leukocyte Esterase Urine WBC Urine Mucus Meds: Medications Acetaminophen (Tylenol) 650 mg PO Q4-6HP PRN; Protocol PRN Reason: Per Pain Protocol/Fever > 101 Amlodipine Besylate (Norvasc) 5 mg PO DAILY [facility] Last Admin: 09/07/20 08:24 Dose: 5 mg Documented by: Benzonatate (Tessalon) 100 mg PO Q8HP PRN PRN Reason: Cough Bisacodyl (Dulcolax) 10 mg ID Q2-3DAYS PRN PRN Reason: Constipation [facility] Last Admin: 09/07/20 08:02 Dose: 12.5 mg Documented by: Dexamethasone (Decadron) 6 mg PO DAILY [facility] Last Admin: 09/07/20 08:23 Dose: 6 mg Documented by: Docusate Sodium (Colace) 100 mg PO BID [facility] Last Admin: 09/07/20 08:24 Dose: 100 mg Documented by: Heparin Sodium (Porcine) (Heparin) 5,000 unit SQ Q12 [facility] Last Admin: 09/07/20 08:23 Dose: 5,000 unit Documented by: Hydralazine HCl (Apresoline) 10 mg IV Q4-6HP PRN PRN Reason: Hypertension Hydrochlorothiazide (Oretic) 12.5 mg PO DAILY [facility] Last Admin: 09/07/20 08:24 Dose: 12.5 mg Documented by: Ceftriaxone Sodium 2 gm/ (Dextrose) 50 mls @ 100 mls/hr IV Q24H [facility]; Protocol Last Admin: 09/07/20 08:26 Dose: 100 mls/hr Documented by: REMDESIVIR 100 mg/ Sodium (Chloride) 250 mls @ 500 mls/hr IV Q24H [facility] Stop: 09/09/20 13:29 Last Admin: 09/07/20 09:15 Dose: 100 mls/hr Documented by: Acetaminophen (Ofirmev) 650 mg in 65 mls @ 130 mls/hr IV Q6HP PRN; Protocol PRN Reason: Per Pain Protocol/Fever > 101 Magnesium Sulfate (Magnesium Sulfate) 2 gm in 50 mls @ 50 mls/hr IV UD PRN PRN Reason: MG = or < 1.7 Potassium Chloride 40 meq/ (Dextrose) 520 mls @ 130 mls/hr IV UD PRN PRN Reason: K+ = or < 3.5 Iron Carb/Multivit/Hard Candy Spinner/Folic Acid (Multivitamin W/Minerals) 1 tab PO DAILY [facility] Last Admin: 09/07/20 08:24 Dose: 1 tab Documented by: Levothyroxine Sodium (Synthroid) 50 mcg PO QAMAC [facility] Last Admin: 09/07/20 08:02 Dose: 50 mcg Documented by: Losartan Potassium (Cozaar) 100 mg PO DAILY [facility] Last Admin: 09/07/20 08:23 Dose: 100 mg Documented by: Melatonin (Melatonin 3mg Tablet) 3 mg PO HSP PRN PRN Reason: Insomnia Metoprolol Tartrate (Lopressor) 5 mg IV Q5M PRN PRN Reason: Heart Rate > 140 bpm Omeprazole (Prilosec) 20 mg PO QAMCC [facility] Last Admin: 09/07/20 08:02 Dose: 20 mg Documented by: Ondansetron HCl (Zofran Odt) 4 mg SL Q4-6HP PRN; Protocol PRN Reason: Nausea And Vomiting Ondansetron HCl (Zofran) 4 mg IV Q4-6HP PRN; Protocol PRN Reason: Nausea And Vomiting Polyethylene Glycol (Miralax) 17 gm PO DAILYP PRN PRN Reason: Constipation Potassium Chloride (Klor-Con) 40 meq PO DAILYP PRN PRN Reason: K+ < 3.5 Senna/Docusate Sodium (Senna Plus Tablet) 1 tab PO HS [facility] Last Admin: 09/06/20 20:30 Dose: 1 tab Documented by: Sodium Chloride (Saline Flush) 10 ml IV Q8 [facility] Last Admin: 09/07/20 05:24 Dose: 10 ml Documented by: Venlafaxine HCl (Effexor Xr) 150 mg PO DAILY [facility] Last Admin: 09/07/20 08:24 Dose: 150 mg Documented by: A/P Narrative A/P Narrative: * COVID-19 pneumonia-clinical improvement noted on day 3 remdesivir/dexamethasone. Continue Covid precautions. * Acute hypoxic respiratory failure secondary to Covid pneumonia. Clinically improving now requiring 3 L oxygen. Anticipate discharge in 48 hours following ablation of remdesivir on home oxygen. Multifocal bilateral chest infiltrates on imaging. * Acute cystitis with pyuria. Clinically improving on antibiotic coverage * History of hypertension stable on home dose Coreg/losartan/thiazide/amlodipine * Hypothyroidism continue thyroxine * GERD continue PPI * anxiety disorder continue venlafaxine * Full code * Prophylaxis heparin Plan * Continue weaning low-flow oxygen * Remdesivir/dexamethasone/Rocephin * Pre-existing medical condition management home meds * nutrition support/therapies * Discharge planning Time Spent With Patient Time: Total time spent is greater than 50% in coordination of care (as documented) at patient's floor/unit and/or counseling patient: QUALITY VTE Deep Vein Thrombosis/Pulmonary Embolism Present on Admission: No
[2020-09-07] MEDS: SENNOSIDES/DOCUSATE SODIUM 1 TAB TABLET PO SCH (20:29)
[2020-09-08] MEDS: 0.9 % SODIUM CHLORIDE 10 ML SYRINGE IV SCH ×3 (05:38→21:20)
[2020-09-08 06:44] LABS: Basophils # (Auto) 0.01 K/mcL (0.00-0.20); Basophils % (Auto) 0.1 % (0.0-2.0); Eosinophils # (Auto) 0.14 K/mcL (0.00-0.70); Eosinophils % (Auto) 1.6 % (0.0-7.0); Hematocrit 35.7 % (36.0-48.0); Hemoglobin 11.3 g/dL (12.0-15.0); Lymphocytes # (Auto) 1.48 K/mcL (1.50-4.80); Lymphocytes % (Auto) 17.1 % (15.0-49.0); Mean Cell Volume 86.2 fL (80.0-100.0); Mean Corpuscular HGB Conc 31.7 g/dL (31.0-36.0); Mean Platelet Volume 11.1 fL (7.4-10.4); Monocytes # (Auto) 0.83 K/mcL (0.10-0.90); Monocytes % (Auto) 9.6 % (1.0-12.0); Neutrophils % (Auto) 71.6 % (38.0-78.0); Platelet Count 256 K/mcL (140-440); RBC 4.14 M/mcL (4.00-5.20); Red Cell Distribution Width 14.5 % (11.5-14.5); WBC 8.6 K/mcL (4.5-11.0)
[2020-09-08] MEDS: LEVOTHYROXINE 50 MCG TABLET PO SCH (06:44)
[2020-09-08 07:07] LABS: ALT/SGPT 10 U/L (<40); AST/SGOT 12 U/L (<32); Albumin 3.4 gm/dL (3.2-5.2); Albumin/Globulin Ratio 1.1 (1.0-2.3); Alkaline Phosphatase 57 U/L (39-117); Bilirubin,Direct < 0.2 mg/dL (<0.3); Bilirubin,Total 0.2 mg/dL (0.1-1.0); Blood Urea Nitrogen 30 mg/dL (8-23); Calcium 8.9 mg/dL (8.6-10.4); Carbon Dioxide 25 mmol/L (22-30); Chloride 102 mmol/L (96-108); Globulin 3.1 gm/dL (2.2-3.7); Glomerular Filtration Rate 67; Glucose 104 mg/dL (70-105); Lactate Dehydrogenase 193 U/L (135-225); Phosphorous 4.1 mg/dL (2.5-4.5); Triglycerides 121 mg/dL (<150); Uric Acid 4.1 mg/dL (2.5-8.0)
--- NOTE | 2020-09-08 08:59 | XRay Report ---
HISTORY: COVID pneumonia FINDINGS: There is a small consolidating infiltrate in the lateral basal segment of the left lower lobe. The pneumonia has become worse in the lateral basal segment but has improved throughout the remainder of the left lung, compared with the prior study done on 09/05/20. The right lower lobe pneumonia has also improved. Subtle increased lung markings are present around the kevin bilaterally. No pleural effusion is present. The heart size is normal. IMPRESSION: Bilateral pneumonia. Overall there has been improvement except for some increasing consolidation in the lateral basal segment of the left lower lobe. Interpreted and Authenticated by: Cm Louis 09/08/20
[2020-09-08] MEDS: VENLAFAXINE 150 MG CAP.XL.24H PO SCH (09:26)
[2020-09-08] MEDS: DOCUSATE SODIUM 100 MG CAPSULE PO SCH ×2 (09:26→21:18)
[2020-09-08] MEDS: amLODIPine 5 MG TABLET PO SCH (09:26)
[2020-09-08] MEDS: MULTIVIT,THER IRON,CA,FA & MIN 1 TABLET PO SCH (09:26)
[2020-09-08] MEDS: HYDROCHLOROTHIAZIDE 12.5 MG CAPSULE PO SCH (09:27)
[2020-09-08] MEDS: HEPARIN 5,000 UNIT/ML VIAL SQ SCH ×2 (09:27→21:18)
[2020-09-08] MEDS: LOSARTAN 50 MG TABLET PO SCH (09:27)
[2020-09-08] MEDS: CARVEDILOL 12.5 MG TABLET PO SCH ×2 (09:27→16:58)
[2020-09-08] MEDS: cefTRIAXone 2 GM in DEXTROSE 5% IN WATER 50 ML IV SCH (09:27)
[2020-09-08] MEDS: OMEPRAZOLE 20 MG CAPSULE PO SCH (09:27)
[2020-09-08] MEDS: REMDESIVIR 100 MG in 0.9 % SODIUM CHLORIDE 250 ML IV SCH (10:36)
[2020-09-08] MEDS: DEXAMETHASONE 4 MG TABLET PO SCH (10:53)
--- NOTE | 2020-09-08 10:56 | Internal Med Progress Note ---
SUBJECTIVE Subjective Patient information: Note initiated : 09/08/20 at 10:53 am Service Date, if different from initiated Date: [] Patient: Jyoti Martinez a 65 y/o F admitted on 09/06/20 for COVID Positive, Pneumonia. Chief Complaint: [] Interval history: Ms. Martinez is a 65 year old F with a history of hypertension/hypothyroidism/anxiety disorder who presents to the ER with 10 days onset of URI symptoms with deterioration in respiratory status after noting her saturation dropping to mid 80s. She was tested positive for Covid 2 days prior to presentation. Initial work-up in the ER was consistent with profound hypoxia requiring 3 L oxygen and bilateral pneumonia on chest imaging. Patient was started on remdesivir/dexamethasone and subsequently hospitalist service was consulted. At the time of my evaluation patient is alert and oriented. She was able to answer most of the questions. She lives with her and denies travel. She denies shaking chills, headache, photophobia endorses myalgia weakness fatigue. She denies productive cough. She endorses to loss of taste but denies rash, joint pain, diarrhea, dysuria. 09/06-patient clinically deteriorating with increasing need for oxygen at 6 L. Overnight afebrile.Stable labs and hemodynamics. Remdesivir day 2/dexamethasone. Restart home medications. UA pyuria. Initiate antibiotic coverage. 09/07-patient clinically improving. No overnight events. Currently on 3 L o xygen down from 6 L the previous day. On day 3/5 remdesivir. Maintaining Covid precautions. Feels better than previous day and in good spirits. No overnight telemetry events or concerns per staff. No fever chills. 09/08-patient doing better. No overnight events. On day 4 remdesivir. Feeling a lot better. Able to ambulate. Tolerating diet. Will likely discharge in 24 hours with outpatient home oxygen. Stable labs and hemodynamics. On 3 L oxygen, white count 8.6 LFTs unremarkable Constitutional Vitals: Vital Signs Temp Pulse Resp BP Pulse Ox 97.5 F 58 L 16 122/96 95 09/08/20 08:03 09/07/20 06:21 09/08/20 08:03 09/08/20 08:03 09/08/20 08:03 Period Temp Pulse Resp BP Sys/Srivastava Pulse Ox Last 24 Hr 97.0 F-98.4 F 104-137/71-96 90-98 Intake and Output 09/07/20 09/08/20 09/08/20 21:59 05:59 13:59 Intake Total 960 610 Output Total 1000 1050 300 Balance -40 -1050 310 Weight 96.757 kg Alert oriented On 3 L oxygen Nonlabored breathing Nondistended abdomen No lymphedema Intake & Output: Intake & Output 09/07/20 09/08/20 09/08/20 21:59 05:59 13:59 Intake Total 960 610 Output Total 1000 1050 300 Balance -40 -1050 310 Weight 96.757 kg Intake: IV 50 Veklury 100 mg In Sodium 0 Chloride 0.9% 250 ml @ 500 mls/ hr IV Q24H [facility] Rx#:[id number] Rocephin 2 gm In Dextrose 5% in 50 Water 50 ml @ 100 mls/hr IV Q24H [facility] Rx#:[id number] Oral 960 560 Output: Void Amount 1000 1050 300 Other: Meal Dinner Breakfast Percent of Meal Consumed 100% 100% Feeding Ability Independent Urine Appearance Clear Clear Urine Color Bright Yellow Bright Yellow Urine Odor Normal Normal Stool Size Moderate Moderate Stool Color Brown Stool Consistency Soft Normal for Patient # Voids 1 # Bowel Movements 1 OBJ DATA Labs CBC & Chem 7: 09/08/20 05:09 09/08/20 05:09 Labs: Abnormal Lab Results 09/08/20 09/08/20 09/07/20 05:09 05:09 05:13 Hgb 11.3 L Hct 35.7 L RDW MPV 11.1 H Lymph # (Auto) 1.48 L BUN 30 H 28 H Glucose 135 H C-Reactive Protein 2.70 H Urine Protein Ur Leukocyte Esterase Urine WBC Urine Mucus 09/07/20 09/05/20 09/05/20 05:13 21:08 18:56 Hgb 11.8 L Hct RDW MPV 11.3 H Lymph # (Auto) 1.42 L BUN Glucose 119 H C-Reactive Protein Urine Protein 30 A Ur Leukocyte Esterase 250 A Urine WBC 21 H Urine Mucus Few A 09/05/20 18:56 Hgb 11.2 L Hct 35.3 L RDW 14.6 H MPV 11.0 H Lymph # (Auto) 1.44 L BUN Glucose C-Reactive Protein Urine Protein Ur Leukocyte Esterase Urine WBC Urine Mucus Meds: Medications Acetaminophen (Tylenol) 650 mg PO Q4-6HP PRN; Protocol PRN Reason: Per Pain Protocol/Fever > 101 Amlodipine Besylate (Norvasc) 5 mg PO DAILY [facility] Last Admin: 09/08/20 09:26 Dose: 5 mg Documented by: Benzonatate (Tessalon) 100 mg PO Q8HP PRN PRN Reason: Cough Bisacodyl (Dulcolax) 10 mg ND Q2-3DAYS PRN PRN Reason: Constipation [facility] ([facility]) [facility] Last Admin: 09/08/20 09:27 Dose: 12.5 mg Documented by: Dexamethasone (Decadron) 6 mg PO DAILY [facility] Last Admin: 09/07/20 08:23 Dose: 6 mg Documented by: Docusate Sodium (Colace) 100 mg PO BID [facility] Last Admin: 09/08/20 09:26 Dose: 100 mg Documented by: Heparin Sodium (Porcine) (Heparin) 5,000 unit SQ Q12 [facility] Last Admin: 09/08/20 09:27 Dose: 5,000 unit Documented by: Hydralazine HCl (Apresoline) 10 mg IV Q4-6HP PRN PRN Reason: Hypertension Hydrochlorothiazide (Oretic) 12.5 mg PO DAILY [facility] Last Admin: 09/08/20 09:27 Dose: 12.5 mg Documented by: Ceftriaxone Sodium 2 gm/ (Dextrose) 50 mls @ 100 mls/hr IV Q24H [facility]; Protocol Last Infusion: 09/08/20 10:37 Dose: Infused Documented by: REMDESIVIR 100 mg/ Sodium (Chloride) 250 mls @ 500 mls/hr IV Q24H [facility] Stop: 09/09/20 13:29 Last Admin: 09/08/20 10:36 Dose: 500 mls/hr Documented by: Acetaminophen (Ofirmev) 650 mg in 65 mls @ 130 mls/hr IV Q6HP PRN; Protocol PRN Reason: Per Pain Protocol/Fever > 101 Magnesium Sulfate (Magnesium Sulfate) 2 gm in 50 mls @ 50 mls/hr IV UD PRN PRN Reason: MG = or < 1.7 Potassium Chloride 40 meq/ (Dextrose) 520 mls @ 130 mls/hr IV UD PRN PRN Reason: K+ = or < 3.5 Iron Carb/Multivit/Child Care Attendant/Folic Acid (Multivitamin W/Minerals) 1 tab PO DAILY [facility] Last Admin: 09/08/20 09:26 Dose: 1 tab Documented by: Levothyroxine Sodium (Synthroid) 50 mcg PO QAMAC [facility] Last Admin: 09/08/20 06:44 Dose: 50 mcg Documented by: Losartan Potassium (Cozaar) 100 mg PO DAILY [facility] Last Admin: 09/08/20 09:27 Dose: 100 mg Documented by: Melatonin (Melatonin 3mg Tablet) 3 mg PO HSP PRN PRN Reason: Insomnia Metoprolol Tartrate (Lopressor) 5 mg IV Q5M PRN PRN Reason: Heart Rate > 140 bpm Omeprazole (Prilosec) 20 mg PO QAC [facility] Last Admin: 09/08/20 09:27 Dose: 20 mg Documented by: Ondansetron HCl (Zofran Odt) 4 mg SL Q4-6HP PRN; Protocol PRN Reason: Nausea And Vomiting Ondansetron HCl (Zofran) 4 mg IV Q4-6HP PRN; Protocol PRN Reason: Nausea And Vomiting Polyethylene Glycol (Miralax) 17 gm PO DAILYP PRN PRN Reason: Constipation Potassium Chloride (Klor-Con) 40 meq PO DAILYP PRN PRN Reason: K+ < 3.5 Senna/Docusate Sodium (Senna Plus Tablet) 1 tab PO HS [facility] Last Admin: 09/07/20 20:29 Dose: 1 tab Documented by: Sodium Chloride (Saline Flush) 10 ml IV Q8 [facility] Last Admin: 09/08/20 05:38 Dose: 10 ml Documented by: Venlafaxine HCl (Effexor Xr) 150 mg PO DAILY [facility] Last Admin: 09/08/20 09:26 Dose: 150 mg Documented by: A/P Narrative A/P Narrative: * COVID-19 pneumonia-interval improvement in chest imaging/clinical improvement noted. On day 4 dexamethasone/remdesivir. Maintain Covid precautions. Continue thrombosis prophylaxis * Acute hypoxic respiratory failure secondary to Covid pneumonia. On clears oxygen. Anticipate discharge home oxygen in 24 hours * Acute cystitis with pyuria. Clinically resolved on antibiotic * History of hypertension stable on home dose Coreg/losartan/thiazide/amlodipine * Hypothyroidism continue thyroxine * GERD continue PPI * anxiety disorder continue venlafaxine * Full code * Prophylaxis heparin Plan * Continue weaning low-flow oxygen * Continue remdesivir/dexamethasone/Rocephin * Pre-existing medical condition management home meds * nutrition support/therapies * Discharge planning likely in 24 hours on home oxygen Time Spent With Patient Time: Total time spent is greater than 50% in coordination of care (as documented) at patient's floor/unit and/or counseling patient: QUALITY VTE Deep Vein Thrombosis/Pulmonary Embolism Present on Admission: No
[2020-09-08] MEDS: SENNOSIDES/DOCUSATE SODIUM 1 TAB TABLET PO SCH (21:18)
[2020-09-09] MEDS: 0.9 % SODIUM CHLORIDE 10 ML SYRINGE IV SCH (06:03)
[2020-09-09 06:59] LABS: Basophils # (Auto) 0.01 K/mcL (0.00-0.20); Basophils % (Auto) 0.1 % (0.0-2.0); Eosinophils # (Auto) 0 K/mcL (0.00-0.70); Eosinophils % (Auto) 0 % (0.0-7.0); Hematocrit 40.3 % (36.0-48.0); Hemoglobin 12.9 g/dL (12.0-15.0); Lymphocytes # (Auto) 1.67 K/mcL (1.50-4.80); Lymphocytes % (Auto) 19.7 % (15.0-49.0); Mean Cell Volume 85.2 fL (80.0-100.0); Mean Platelet Volume 11.3 fL (7.4-10.4); Monocytes % (Auto) 9.4 % (1.0-12.0); Neutrophils % (Auto) 70.8 % (38.0-78.0); Platelet Count 295 K/mcL (140-440); RBC 4.73 M/mcL (4.00-5.20); Red Cell Distribution Width 14.5 % (11.5-14.5); WBC 8.5 K/mcL (4.5-11.0)
[2020-09-09 07:10] LABS: ALT/SGPT 16 U/L (<40); AST/SGOT 17 U/L (<32); Albumin 3.6 gm/dL (3.2-5.2); Albumin/Globulin Ratio 1.1 (1.0-2.3); Alkaline Phosphatase 62 U/L (39-117); Bilirubin,Direct < 0.2 mg/dL (<0.3); Bilirubin,Total 0.2 mg/dL (0.1-1.0); Blood Urea Nitrogen 30 mg/dL (8-23); Calcium 9.1 mg/dL (8.6-10.4); Carbon Dioxide 25 mmol/L (22-30); Chloride 102 mmol/L (96-108); Globulin 3.4 gm/dL (2.2-3.7); Glomerular Filtration Rate 59; Glucose 99 mg/dL (70-105); Lactate Dehydrogenase 226 U/L (135-225); Phosphorous 4.1 mg/dL (2.5-4.5); Triglycerides 175 mg/dL (<150); Uric Acid 4.1 mg/dL (2.5-8.0)
[2020-09-09] MEDS: LEVOTHYROXINE 50 MCG TABLET PO SCH (07:57)
[2020-09-09] MEDS: OMEPRAZOLE 20 MG CAPSULE PO SCH (07:57)
[2020-09-09] MEDS: HEPARIN 5,000 UNIT/ML VIAL SQ SCH (09:14)
[2020-09-09] MEDS: MULTIVIT,THER IRON,CA,FA & MIN 1 TABLET PO SCH (09:14)
[2020-09-09] MEDS: LOSARTAN 50 MG TABLET PO SCH (09:14)
[2020-09-09] MEDS: HYDROCHLOROTHIAZIDE 12.5 MG CAPSULE PO SCH (09:14)
[2020-09-09] MEDS: DOCUSATE SODIUM 100 MG CAPSULE PO SCH (09:15)
[2020-09-09] MEDS: DEXAMETHASONE 4 MG TABLET PO SCH (09:15)
[2020-09-09] MEDS: cefTRIAXone 2 GM in DEXTROSE 5% IN WATER 50 ML IV SCH (09:15)
[2020-09-09] MEDS: amLODIPine 5 MG TABLET PO SCH (09:15)
[2020-09-09] MEDS: VENLAFAXINE 150 MG CAP.XL.24H PO SCH (09:15)
[2020-09-09] MEDS: CARVEDILOL 12.5 MG TABLET PO SCH (09:16)
--- NOTE | 2020-09-09 11:04 | Discharge Summary ---
Discharge Provider Provider Patient information: Note initiated : 09/09/20 at 11:01 am Service Date, if different from initiated Date: [] Patient: Jyoti Martinez a 65 y/o F admitted on 09/06/20 for COVID Positive, Pneumonia. Discharge diagnosis * COVID-19 pneumonia-interval improvement in chest imaging/clinical improvement noted. Completed 5-day dexamethasone/remdesivir. Maintain Covid precautions. Discharging home * Acute hypoxic respiratory failure secondary to Covid pneumonia. On room air at rest and 1 L on exercise. Discharge on home oxygen if qualifies with exercise oximetry. * Acute cystitis with pyuria. Clinically resolved on antibiotic * History of hypertension stable on home dose Coreg/losartan/thiazide/amlodipine * Hypothyroidism continue thyroxine * GERD continue PPI * anxiety disorder continue venlafaxine Brief hospital course Interval history: Ms. Martinez is a 65 year old F with a history of hypertension/hypothyroidism/anxiety disorder who presents to the ER with 10 days onset of URI symptoms with deterioration in respiratory status after noting her saturation dropping to mid 80s. She was tested positive for Covid 2 days prior to presentation. Initial work-up in the ER was consistent with profound hypoxia requiring 3 L oxygen and bilateral pneumonia on chest imaging. Patient was started on remdesivir/dexamethasone and subsequently hospitalist service was consulted. At the time of my evaluation patient is alert and oriented. She was able to answer most of the questions. She lives with her and denies travel. She denies shaking chills, headache, photophobia endorses myalgia weakness fatigue. She denies productive cough. She endorses to loss of taste but denies rash, joint pain, diarrhea, dysuria. 09/06-patient clinically deteriorating with increasing need for oxygen at 6 L. Overnight afebrile.Stable labs and hemodynamics. Remdesivir day 2/dexamethasone. Restart home medications. UA pyuria. Initiate antibiotic coverage. 09/07-patient clinically improving. No overnight events. Currently on 3 L oxygen down from 6 L the previous day. On day /5 remdesivir. Maintaining Covid precautions. Feels better than previous day and in good spirits. No overnight telemetry events or concerns per staff. No fever chills. 09/08-patient doing better. No overnight events. On day 4 remdesivir. Feeling a lot better. Able to ambulate. Tolerating diet. Will likely discharge in 24 hours with outpatient home oxygen. Stable labs and hemodynamics. On 3 L oxygen, white count 8.6 LFTs unremarkable 09/09-patient doing remarkably well. Ambulating. Denies shortness of breath fever chills. No overnight events. Discharging home on additional 5 days of dexamethasone. Completed 5 days of remdesivir. Clinically improved. Date of admission: 09/06/20 07:43 Discharge date: 09/09/20 Primary care physician: Helder Mendez MD Consults: 09/05/20 Consult to Physician [CONS] Stat Comment: Consulting Provider: Jose Laurent Reason For Exam: Physician to Consult Discharge Meds Discharge Medications Home Medications losartan 100 mg tablet 100 mg PO QDAY 08/04/19 [History Confirmed 09/06/20 Last Taken Unknown] omeprazole 20 mg capsule,delayed release 20 mg PO QDAY 08/04/19 [History Confirmed 09/06/20 Last Taken Unknown] onabotulinumtoxinA 100 unit solution for injection 100 unit IM .COMPLEX each 08/04/19 [History Confirmed 09/06/20 Last Taken Unknown] Auto-pap #1 ea 10/30/19 [Rx Confirmed 09/06/20 Last Taken Unknown] clonidine HCl 0.1 mg tablet 0.1 mg PO BID #60 tab 05/31/20 [Rx Confirmed Last Taken Unknown] amlodipine 5 mg PO DAILY 09/06/20 [History Confirmed 09/06/20 Last Taken Unknown] benzonatate 100 mg PO Q8HP PRN 09/06/20 [History Confirmed 09/06/20 Last Taken Unknown] carvedilol 12.5 mg PO BID 09/06/20 [History Confirmed 09/06/20 Last Taken Unknown] hydrochlorothiazide 12.5 mg PO DAILY 09/06/20 [History Confirmed 09/06/20 Last Taken Unknown] levothyroxine [Synthroid] 50 mcg PO DAILY 09/06/20 [History Confirmed 09/06/20 Last Taken Unknown] promethazine-DM 5 ml PO Q6HP PRN 09/06/20 [History Confirmed 09/06/20 Last Taken Unknown] venlafaxine 150 mg PO DAILY 09/06/20 [History Confirmed 09/06/20 Last Taken Unknown] dexamethasone 6 mg PO DAILY #8 tab 09/09/20 [Rx Last Taken Unknown] COURSE Hospital Course Hospital course: . Discharge diagnosis: COVID-19 pneumonia/hypoxic respiratory failure Time Spent with Patient Time attestation: Total time spent providing and/or coordinating discharge services: EXAM Constitutional Vitals: Temp Pulse Resp BP Pulse Ox 97.6 F 57 L 26 H 111/73 95 09/09/20 10:02 09/09/20 05:00 09/09/20 10:02 09/09/20 10:02 09/09/20 10:02 Alert oriented Nonlabored breathing No anxiety Discharge Data Data Completed and Pending Labs on day of discharge: Labs from last 24 hours 09/09/20 09/09/20 05:12 05:11 WBC 8.5 RBC 4.73 Hgb 12.9 Hct 40.3 MCV 85.2 MCH 27.3 MCHC 32.0 RDW 14.5 Plt Count 295 MPV 11.3 H Neut % (Auto) 70.8 Lymph % (Auto) 19.7 [place] % (Auto) 9.4 Eos % (Auto) 0 Baso % (Auto) 0.1 Lymph # (Auto) 1.67 [place] # (Auto) 0.80 Eos # (Auto) 0 Baso # (Auto) 0.01 Absolute Neutrophils 6.01 Sodium 139 Potassium 4.1 Chloride 102 Carbon Dioxide 25 Anion Gap 12.0 BUN 30 H Creatinine 1.0 GFR Calculation 59 Glucose 99 Uric Acid 4.1 Calcium 9.1 Phosphorus 4.1 Magnesium 2.3 Total Bilirubin 0.2 Direct Bilirubin < 0.2 GGT 31 AST 17 ALT 16 Alkaline Phosphatase 62 Lactate Dehydrogenase 226 H Total Protein 7.0 Albumin 3.6 Globulin 3.4 Albumin/Globulin Ratio 1.1 Triglycerides 175 H Preliminary micro results at discharge 09/05/20 20:29 Blood Culture - Preliminary Blood 09/05/20 20:22 Blood Culture - Preliminary Blood Discharge Plan Patient/Caregiver Discharge Instructions Activity: increase activity as tolerated Diet: Regular Diet Instructions: COVID-19, Community Acquired Pneumonia (GEN) Activity Restrictions/Additional Instructions: COVID-19 precaution for 10 days Dexamethasone for additional 5 days Follow-up PCP in 2 weeks This discharge packet is provided to you to help keep you informed about your care. We want to ensure you get everything you need when you go home. You will also be receiving a call from us in a few days to follow up with you and see how you are doing since your discharge. This gives us a chance to listen to any concerns you maybe experiencing since you were discharged or any additional needs you may have, as well as providing us feedback on your care experience. We strive to always provide excellent care and thank you for your feedback and for choosing [facility]. Prescriptions: New dexamethasone 4 mg Tablet 6 mg PO DAILY Qty: 8 RF: 0 Continued (DME) Auto-pap Qty: 1 RF: 0 clonidine HCl 0.1 mg tablet 0.1 mg PO BID Qty: 60 RF: 0 Botox 100 unit recon soln 100 unit IM .COMPLEX RF: 0 losartan 100 mg tablet 100 mg PO QDAY RF: 0 omeprazole 20 mg capsule,delayed release(DR/EC) 20 mg PO QDAY RF: 0 carvedilol 12.5 mg tablet 12.5 mg PO BID RF: 0 levothyroxine [Synthroid] 50 mcg tablet 50 mcg PO DAILY RF: 0 venlafaxine 150 mg capsule,extended release 24hr 150 mg PO DAILY RF: 0 amlodipine 5 mg tablet 5 mg PO DAILY RF: 0 hydrochlorothiazide 12.5 mg tablet 12.5 mg PO DAILY RF: 0 promethazine-DM 6.25-15 mg/5 mL syrup 5 ml PO Q6HP PRN (Reason: Cough) RF: 0 benzonatate 100 mg capsule 100 mg PO Q8HP PRN (Reason: Cough) RF: 0 Follow Up Plan Follow up with: Helder Mendez MD [Primary Care Provider] - (Please call on Saturday to schedule an appointment.) Patient Disposition: Home, Self-Care Prognosis: Fair Rehab Potential: Fair I certify that the patient requires SNF services: No Overall status at discharge: patient is progressing back to baseline Discharge Orders: Discharge Order (Routine); Ordered 09/09/20 Ordered By: Jose GARCIA VTE Deep Vein Thrombosis/Pulmonary Embolism Present on Admission: No
[2020-09-09] MEDS: REMDESIVIR 100 MG in 0.9 % SODIUM CHLORIDE 250 ML IV SCH (11:25)
== END 2020-09-09 13:30 | disposition home or self-care (01) | DRG 177 ==
LOC: ED 18:08 → ICU 09-06 07:43
PROVIDERS: ADMIT Internal Medicine; ATTEND Internal Medicine

== ENCOUNTER 2021-01-21 01:40 | Inpatient (IN) ==
[2021-01-21] MEDS ORDERED: LACTATED RINGERS 2,000 ML IV ONE (01:58)
[2021-01-21] MEDS ORDERED: ONDANSETRON 4 MG/2 ML VIAL IV ONE (01:58)
--- NOTE | 2021-01-21 01:58 | Emergency Department Note ---
HPI General Chief complaint: Extremity Injury, Lower Stated complaint: right hip pain Time Seen by Provider: 01/21/21 01:55 Source: EMS Mode of arrival: EMS Limitations: no limitations History of Present Illness HPI Narrative: Narrative: Patient is a 65-year-old female who was brought in by EMS when she was drinking and then found herself on the floor at home. She is uncertain what happened as she has no recollection of the event. She is complaint of right hip pain and was unable to get herself up. She is not with any chest pain or shortness of breath. No feeling of palpitations. She has not had any history of blood clots. She notes that she takes a pain medication for improved but was not certain of the specifics. She has not had any fever nausea vomiting or diarrhea. She states that she drinks bourbon. Rates her pain as mild to moderate more severe with any movement of the right hip. She has normal sensation in the right leg. Related Data Home Medications Medication Instructions Recorded Confirmed omeprazole 20 mg capsule,delayed 20 mg PO QDAY 08/04/19 11/29/20 release carvedilol 12.5 mg PO BID 09/06/20 11/29/20 venlafaxine 150 mg PO DAILY 09/06/20 11/29/20 losartan 100 mg tablet 100 mg PO QHS tab 11/29/20 11/29/20 amlodipine 5 mg PO DAILY 01/21/21 01/21/21 benzonatate 100 mg PO Q8HP PRN 01/21/21 01/21/21 Previous Rx's Medication Instructions Recorded levothyroxine 50 mcg tablet 50 mcg PO DAILY #90 tab 12/08/20 Allergies Allergy/AdvReac Type Severity Reaction Status Date / Time No Known Drug Allergies Allergy Unknown Verified 11/29/20 08:34 [NO KNOWN DRUG ALLERGIES] Review of Systems ROS ROS Narrative: Narrative: A 10 system review of systems was performed and found to be negative except as outlined above. [facility] Narrative Patient History Narrative: Narrative: Medical/Surgical/Family History All Active Problems (Updated 01/21/21 @ 04:52 by Johnny Henley MD) Fracture of hip (Acute) Pulmonary neoplasm (Acute) Osteopenia (Chronic) History of meningioma of the brain (Chronic) History of cataract surgery (Chronic ~12/2014) History of colonoscopy (Chronic ~2016) History of laparoscopic cholecystectomy (Chronic ~02/08/12) Hypersomnia (Chronic) Blepharospasm (Chronic) Skin cancer (Chronic) Diverticulosis (Chronic) Generalized anxiety disorder (Chronic) Chronic kidney disease, stage 2 (mild) (Chronic) Hypothyroidism, unspecified (Chronic) Essential (primary) hypertension (Chronic) Nicotine dependence (Chronic) Obesity, unspecified (Chronic) Polycystic kidney, adult type (Chronic) Nonrheumatic mitral valve disorder, unspecified (Chronic) Dysthymic disorder (Chronic) Gastro-esophageal reflux disease without esophagitis (Chronic) Snoring (Chronic) Medical History (Updated 01/21/21 @ 04:52 by Johnny Henley MD) Blepharospasm Breast cancer screening by mammogram Chronic kidney disease, stage 2 (mild) Cough Diverticulosis Dyspnea, unspecified Dysthymic disorder Essential (primary) hypertension Fall Gastro-esophageal reflux disease without esophagitis Generalized anxiety disorder Hematoma and contusion History of meningioma of the brain Hypersomnia Hypothyroidism, unspecified Infectious mononucleosis Knee pain Measles Mumps Nicotine dependence Quit 2012 Nonrheumatic mitral valve disorder, unspecified Obesity, unspecified Osteopenia Polycystic kidney, adult type Skin cancer Snoring Whooping cough Surgical History History of cataract surgery (~12/2014) History of colonoscopy (~2017) History of laparoscopic cholecystectomy (~02/08/12) Family History Father , Age 62 Heart disease Mother , Age 83 Tumor Stroke Cancer of unknown origin Family/Other Heart disease "Siblings" Obesity "Siblings" Brother , age 62 Obesity Social History Smoking Status: Former smoker Alcohol Intake Frequency: a few times a month Substance Use: does not use Exam Narrative Narrative: Narrative: General: Alert, speaking full sentences without dyspnea. She is accompanied by her supportive . HEENT: NCAT, PERRL, Oral pharynx with dry mucus membranes. No pharyngeal erythema. No conjunctival pallor Neck: Supple, No lymphadenopathy Chest: Stable Heart: Regular rate and rhythm without murmur Lungs: Clear to auscultation bilaterally. There is no wheezes no crackles. Lung sounds appear entirely normal Abdomen: Soft, nondistended, nontender : No bladder distention Back: Nontraumatic, No CVA tenderness to palpation. Skin: No rash or lesion Extremity: No obvious cyanosis or edema, pulses 2+ radial. The right pelvis is slightly elevated given the impression that the right leg might be slightly short but this appears to be more pelvic canting as opposed to any shortening of the extremity itself. There is no rotational deformity of the right lower extremity. She has pain at the right hip area with any movement of the right lower leg. She has normal movement of the knee and the ankle. Pulses 1+ at the posterior tibial. Neurologic: Moves all extremities in appropriate coordinated fashion with the exception of the right lower extremity secondary to pain. General Limitations: no limitations Course Vital Signs Vital signs: Vital Signs Temperature 98.0 F 01/21/21 01:44 Pulse Rate 70 01/21/21 01:44 Respiratory Rate 18 01/21/21 01:44 Pulse Oximetry (%) 80 L 01/21/21 01:44 Temperature 98.0 F 01/21/21 01:44 Pulse Rate 77 01/21/21 04:31 Respiratory Rate 20 01/21/21 02:31 Blood Pressure 144/83 01/21/21 04:31 Pulse Oximetry (%) 92 01/21/21 04:31 [facility] MDM Narrative Medical decision making narrative: Narrative: Patient was placed on oxygen per nasal cannula with improvement in her saturation. I considered effective medications, pneumonia pneumothorax from rib fractures or other trauma as well as consideration of mass or pulmonary embolism. Given the patient had fallen she did end up with a CT of the head as well as the neck. I did a CT chest to evaluate for PE or other cause and unfortunately this showed evidence of left pulmonary hilar mass with left upper lobe nodule as well as some postobstructive changes of the left upper lung zone. Patient will ultimately need further oncology evaluation regarding the new findings. Her CT of the pelvis unfortunately showed a right subcapital femoral neck fracture which will be requiring fixation or stabilization for mobility. I have talked with the hospitalist who will admit the patient for further care as well as clearance and orthopedics who will evaluate the patient for operative r epair of the right hip. I have spoken with the patient and her regarding the new findings in the left chest as well as the need for further diagnostic studies to be more clear on the diagnosis although did let them know the diagnosis was relatively probable. With the patient's initial hypoxia and intoxication at time of arrival she did not require any pain medication with minimal movement but I have written for further pain medications on findings as well as plan for admission. She has been maintaining oxygen saturations. She will need CPAP for continued stay. Lab Data Result diagrams: 01/21/21 02:10 01/21/21 02:10 Labs: Lab Results 01/21/21 01/21/21 01/21/21 Range/Units 02:10 02:10 02:10 WBC 11.7 H (4.5-11.0) K/mcL RBC 3.99 L (4.00-5.20) M/mcL Hgb 11.5 L (12.0-15.0) g/dL Hct 36.1 (36.0-48.0) % MCV 90.5 (80.0-100.0) fL MCH 28.8 (26.0-34.0) pg MCHC 31.9 (31.0-36.0) g/dL RDW 12.7 (11.5-14.5) % Plt Count 170 (140-440) K/mcL MPV 10.5 H (7.4-10.4) fL Neut % (Auto) 80.1 H (38.0-78.0) % Lymph % (Auto) 12.6 L (15.0-49.0) % [place] % (Auto) 6.6 (1.0-12.0) % Eos % (Auto) 0.4 (0.0-7.0) % Baso % (Auto) 0.3 (0.0-2.0) % Lymph # (Auto) 1.47 L (1.50-4.80) K/mcL [place] # (Auto) 0.77 (0.10-0.90) K/mcL Eos # (Auto) 0.05 (0.00-0.70) K/mcL Baso # (Auto) 0.03 (0.00-0.20) K/mcL Absolute Neutrophils 9.35 H (1.80-8.00) K/mcL PT 12.8 (11.9-14.5) sec INR 0.9 (0.9-1.1) Sodium 140 (133-145) mmol/L Potassium 3.5 (3.3-5.1) mmol/L Chloride 104 (96-108) mmol/L Carbon Dioxide 24 (22-30) mmol/L Anion Gap 12.0 (8.0-16.0) BUN 18 (8-23) mg/dL Creatinine 0.9 (0.6-1.1) mg/dL POC Creatinine 1.1 (0.6-1.2) mg/dL GFR Calculation 66 Glucose 97 (70-105) mg/dL Calcium 8.9 (8.6-10.4) mg/dL Total Bilirubin 0.2 (0.1-1.0) mg/dL AST 17 (<32) U/L ALT 14 (<40) U/L Alkaline Phosphatase 70 (39-117) U/L Troponin T (<0.03) ng/mL Total Protein 6.7 (5.9-8.4) gm/dL Albumin 4.1 (3.2-5.2) gm/dL Globulin 2.6 (2.2-3.7) gm/dL Albumin/Globulin Ratio 1.6 (1.0-2.3) Ethyl Alcohol (<0.010) gm/dL 01/21/21 01/21/21 Range/Units 02:11 02:22 WBC (4.5-11.0) K/mcL RBC (4.00-5.20) M/mcL Hgb (12.0-15.0) g/dL Hct (36.0-48.0) % MCV (80.0-100.0) fL MCH (26.0-34.0) pg MCHC (31.0-36.0) g/dL RDW (11.5-14.5) % Plt Count (140-440) K/mcL MPV (7.4-10.4) fL Neut % (Auto) (38.0-78.0) % Lymph % (Auto) (15.0-49.0) % [place] % (Auto) (1.0-12.0) % Eos % (Auto) (0.0-7.0) % Baso % (Auto) (0.0-2.0) % Lymph # (Auto) (1.50-4.80) K/mcL [place] # (Auto) (0.10-0.90) K/mcL Eos # (Auto) (0.00-0.70) K/mcL Baso # (Auto) (0.00-0.20) K/mcL Absolute Neutrophils (1.80-8.00) K/mcL PT (11.9-14.5) sec INR (0.9-1.1) Sodium (133-145) mmol/L Potassium (3.3-5.1) mmol/L Chloride (96-108) mmol/L Carbon Dioxide (22-30) mmol/L Anion Gap (8.0-16.0) BUN (8-23) mg/dL Creatinine (0.6-1.1) mg/dL POC Creatinine (0.6-1.2) mg/dL GFR Calculation Glucose (70-105) mg/dL Calcium (8.6-10.4) mg/dL Total Bilirubin (0.1-1.0) mg/dL AST (<32) U/L ALT (<40) U/L Alkaline Phosphatase (39-117) U/L Troponin T < 0.01 (<0.03) ng/mL Total Protein (5.9-8.4) gm/dL Albumin (3.2-5.2) gm/dL Globulin (2.2-3.7) gm/dL Albumin/Globulin Ratio (1.0-2.3) Ethyl Alcohol 0.141 H (<0.010) gm/dL ED POC Tests ED POC Tests: KENJI - SARS Antigen Negative Discharge Plan Patient/Caregiver Discharge Instructions Pt seen by WOOD PANEL INSPECTOR/PA only: No Clinical Impression: Fracture of hip, Pulmonary neoplasm Instructions: Hip Fracture (ED), ORIF of Hip Fracture (DC) Patient Disposition: Xfer As Inpt ([facility]) Condition: Serious Follow up with: Helder Mendez MD [Primary Care Provider] - Prescriptions: No Action levothyroxine [Synthroid] 50 mcg tablet 50 mcg PO DAILY Qty: 90 RF: 1 omeprazole 20 mg capsule,delayed release(DR/EC) 20 mg PO QDAY RF: 0 losartan 100 mg tablet 100 mg PO QHS RF: 0 carvedilol 12.5 mg tablet 12.5 mg PO BID RF: 0 venlafaxine 150 mg capsule,extended release 24hr 150 mg PO DAILY RF: 0 amlodipine 5 mg tablet 5 mg PO DAILY RF: 0 benzonatate 100 mg capsule 100 mg PO Q8HP PRN (Reason: Cough) RF: 0
[2021-01-21 02:30] LABS: POC Creatinine 1.1 mg/dL (0.6-1.2)
[2021-01-21] MEDS ORDERED: LACTATED RINGERS 1,000 ML IV ONE (02:35)
[2021-01-21 03:00] LABS: Basophils # (Auto) 0.03 K/mcL (0.00-0.20); Basophils % (Auto) 0.3 % (0.0-2.0); Eosinophils # (Auto) 0.05 K/mcL (0.00-0.70); Eosinophils % (Auto) 0.4 % (0.0-7.0); Hematocrit 36.1 % (36.0-48.0); Hemoglobin 11.5 g/dL (12.0-15.0); Lymphocytes # (Auto) 1.47 K/mcL (1.50-4.80); Lymphocytes % (Auto) 12.6 % (15.0-49.0); Mean Cell Volume 90.5 fL (80.0-100.0); Mean Corpuscular HGB Conc 31.9 g/dL (31.0-36.0); Mean Platelet Volume 10.5 fL (7.4-10.4); Monocytes # (Auto) 0.77 K/mcL (0.10-0.90); Monocytes % (Auto) 6.6 % (1.0-12.0); Neutrophils % (Auto) 80.1 % (38.0-78.0); Platelet Count 170 K/mcL (140-440); RBC 3.99 M/mcL (4.00-5.20); Red Cell Distribution Width 12.7 % (11.5-14.5); WBC 11.7 K/mcL (4.5-11.0)
[2021-01-21 03:20] LABS: ALT/SGPT 14 U/L (<40); AST/SGOT 17 U/L (<32); Albumin 4.1 gm/dL (3.2-5.2); Albumin/Globulin Ratio 1.6 (1.0-2.3); Alkaline Phosphatase 70 U/L (39-117); Bilirubin,Total 0.2 mg/dL (0.1-1.0); Blood Urea Nitrogen 18 mg/dL (8-23); Calcium 8.9 mg/dL (8.6-10.4); Carbon Dioxide 24 mmol/L (22-30); Chloride 104 mmol/L (96-108); Globulin 2.6 gm/dL (2.2-3.7); Glomerular Filtration Rate 66; Glucose 97 mg/dL (70-105); INR 0.9 (0.9-1.1); Prothrombin Time 12.8 sec (11.9-14.5)
[2021-01-21 03:25] LABS: Alcohol,Blood 0.141 gm/dL (<0.010)
[2021-01-21] MEDS ORDERED: ONDANSETRON 4 MG/2 ML VIAL IV PRN (04:46)
[2021-01-21] MEDS: HYDROmorphone 0.5 MG/0.5 ML SYRINGE IV PRN ×3 (05:23→17:27)
[2021-01-21] MEDS: DEXTROSE 5%-LR 1,000 ML IV SCH ×2 (05:26→17:30)
--- NOTE | 2021-01-21 06:30 | Cat Scan Report ---
INDICATION: fall with loc COMPARISON: None. TECHNIQUE: Axial noncontrast-enhanced images through the brain. Sagittally and coronally reformatted images. FINDINGS: Examination was initially interpreted by [facility] Cerebral hemispheres:Negative. No intra-axial abnormality. No intra-axial hematoma. No localized mass effect. Brain volume is within normal limits. No hydrocephalus Brainstem and cerebellum:No intra-axial abnormality Extra-axial:No acute hemorrhage. No subdural or epidural hematoma. No subarachnoid hemorrhage. Basilar cisterns are normal Calcified extra-axial mass in the anterior right middle cranial fossa. This measures 16 x 17 x 15 mm. Appearance is consistent with a calcified meningioma. Calvarial:No calvarial fracture. No lytic lesion Temporal bones are negative. No destructive lesions Soft tissue, orbits, sinuses:Orbits and visualized facial soft tissues and paranasal sinuses are negative IMPRESSION: 1. No acute abnormality 2. 17 mm calcified extra-axial mass in the anterior right middle cranial fossa. Appearance is consistent with meningioma The exam was performed using radiation dose optimization techniques including, but not limited to, automated exposure control, adjustment of the mA and/or kV according to patient size and use of iterative reconstruction technique. Interpreted and Authenticated by: Frandy Jimenez 01/21/21
--- NOTE | 2021-01-21 06:35 | Cat Scan Report ---
INDICATION: fall with loc COMPARISON: None. TECHNIQUE: Axial thin section images through the cervical spine. Sagittally and coronally reformatted images. The exam was performed using radiation dose optimization techniques including, but not limited to, automated exposure control, adjustment of the mA and/or kV according to patient size and use of iterative reconstruction technique. FINDINGS: Examination was initially interpreted by [facility] Vertebral bodies, spinous processes:No vertebral body or spinous process fracture. No acute abnormality. Alignment is anatomic without anterolisthesis Normal odontoid process. No fracture. Occipital condyles and C1 are negative. No atlantoaxial subluxation. Facets:No perched or locked facet. No facet complex fracture. Significant degenerative facet arthropathy at C2-C3, C3-C4, C4-C5. There is mild C3-C4 anterolisthesis Disc spaces:Degenerative disc narrowing at multiple levels. There is mild degenerative disc disease at C3-C4. Severe degenerative disc disease at C4-C5, C5-C6. Moderate degenerative narrowing at C6-C7. Temporal bones:Negative. No basilar skull fracture Cervical soft tissues:Negative. No prevertebral soft tissue swelling. No focal soft tissue mass or acute abnormality Lung apices:No pneumothorax. Severe interstitial disease bilaterally. There is centrilobular emphysema and thickening of interlobular septa. There is consolidation in the left upper lung consistent with pneumonia. Chest CT scan is pending IMPRESSION: 1. Multilevel degenerative disc disease and facet arthropathy 2. No cervical spine fracture 3. Severe lung disease with left upper lobe consolidation. Interpreted and Authenticated by: Frandy Jimenez 01/21/21
--- NOTE | 2021-01-21 06:41 | Cat Scan Report ---
INDICATION: fall, right hip pain TECHNIQUE: Axial images through the pelvis. Sagittal and coronal reformatted images COMPARISON: None. FINDINGS: Examination was initially interpreted by [facility] Mildly comminuted right subcapital hip fracture. There is foreshortening with displacement and angulation deformity. Left hip is negative. No left hip fracture. Pelvis is negative. No pelvic fracture. Sacrum is negative. Urinary bladder is distended. There is no pelvic mass. No free pelvic fluid. Kidneys are abnormal consistent with polycystic kidney disease. IMPRESSION: 1. Right subcapital hip fracture with angulation and displacement. 2. Polycystic kidneys. Distended bladder. Interpreted and Authenticated by: Frandy Jimenez 01/21/21
--- NOTE | 2021-01-21 07:02 | Cat Scan Report ---
INDICATION: hypoxia COMPARISON: None TECHNIQUE: Axial images obtained through the chest. 80ml Isovue 370 injected intravenously, and scanning was performed during pulmonary arterial phase. Sagittally and coronally reformatted images were obtained. MIP reformatted images. FINDINGS: Examination was initially interpreted by [facility] There is a large left hilar mass. This encases the left pulmonary artery and narrows the left upper lobe branches. There is effacement of left upper lobe bronchi. Left hilar mass measures approximately 5 x 4 x 6 cm. Appearance is consistent with malignancy. Small cell lung cancer could have this appearance. Metastatic disease is possible. Lungs are diffusely abnormal with central lobular emphysema and interlobular septal thickening. There is left upper lobe consolidation consistent with postobstructive pneumonia. Lungs:Centrilobular emphysema and interlobular septal thickening as above. There is mild bilateral lower lobe bronchiectasis left upper lobe consolidation is consistent with postobstructive pneumonia There is a 10 mm nodule in the right lung apex. This is nonspecific but neoplasm is possible. There is a 10 mm lingular nodule, image 33. There is a 5 mm right lower lobe noncalcified nodule, image number 60 there is bilateral lower lobe dependent atelectasis. Mediastinum, vascular:No pretracheal or subcarinal adenopathy. Right hilum is negative. Thoracic aorta is not dilated. No dissection. Pulmonary vasculature is opacified. No pulmonary embolism. Heart:No cardiomegaly. No pericardial effusion. Pleura:No significant pleural effusion. No pleural mass or calcification Axilla, supraclavicular regions, chest wall:No pathologic axillary or supraclavicular adenopathy. Musculoskeletal:No thoracic compression fractures. There is a sclerotic density in the T3 vertebral body. This is at the base of the pedicle on the left. This is nonspecific. Metastasis is possible. No other sclerotic or lytic lesions identified. No rib lesions or sternal lesions identified. Upper Abdomen:Multiple low density lesions within the liver. Findings are nonspecific but in this patient with a large left hilar mass metastases are suspected. Kidneys are enlarged with multiple large cysts consistent with adult polycystic kidney disease. IMPRESSION: 1. Severe centrilobular emphysema 2. Large left hilar mass with findings consistent with left upper lobe postobstructive pneumonia. Appearance is consistent with neoplasm and small cell lung cancer should be considered 3. Bilateral lung nodules as above. Findings are nonspecific 4. Multiple low-density lesions within the liver. These may be metastases although appearance is nonspecific 5. Findings consistent with adult polycystic kidney disease 6. Sclerotic abnormality in the T3 vertebral body is nonspecific The exam was performed using radiation dose optimization techniques including, but not limited to, automated exposure control, adjustment of the mA and/or kV according to patient size and use of iterative reconstruction technique. Interpreted and Authenticated by: Frandy Jimenez 01/21/21
--- NOTE | 2021-01-21 08:33 | Orthopedic History & Physical ---
HPI History of Present Illness Patient information: Note initiated : 01/21/21 at 8:17 am Service Date, if different from initiated Date: [] Patient: Jyoti Wills a 65 y/o F admitted on 01/21/21 for right hip pain. Chief Complaint: [right hip pain s/p fall ] History of present illness: Ms. Wills is a 65 year old Female who presented to the ED with complaint of right hip pain s/p fall. She denies head strike or loss of consciousness during the event but also states she does not remember why she fell. upon arrival to the ED she complained of SOB and a chest CTA was obtained which was reportedly negative for PE but revealed a nodule in the right upper lobe. imaging obtained in the ED revealed a subcapital area femoral neck fracture with possible lesion of metastatic disease. She is an occasional drinker and endorses quitting smoking 8 years ago and denies street drug use. She has known polycystic kidney disease and hypothyroid but denies any other chronic health conditions. On exam patient is seated in bed in no acute distress, she is alert and oriented x3, head is normocephalic with no evidence of injury. Lungs are mostly clear to auscultation with slight expiratory wheezes at upper bilaterally. Heart is normal rate and rhythm. Cranial nerve testing 2-12 is negative for focal deficit Chest and abdomen are non tender to palpation. She is able to move all 4 extremities which are warm, well perfused and neuro intact, but ROM of right hip is limited by pain. Right hip area is painful to palpation. Review of Systems Review of systems: 10 point review of systems performed and is negative except where mentioned. PFSH PFSH All Active Problems (Updated 01/21/21 @ 04:52 by Johnny Henley MD) Fracture of hip (Acute) Pulmonary neoplasm (Acute) Osteopenia (Chronic) History of meningioma of the brain (Chronic) History of cataract surgery (Chronic ~12/2014) History of colonoscopy (Chronic ~2016) History of laparoscopic cholecystectomy (Chronic ~02/08/12) Hypersomnia (Chronic) Blepharospasm (Chronic) Skin cancer (Chronic) Diverticulosis (Chronic) Generalized anxiety disorder (Chronic) Chronic kidney disease, stage 2 (mild) (Chronic) Hypothyroidism, unspecified (Chronic) Essential (primary) hypertension (Chronic) Nicotine dependence (Chronic) Obesity, unspecified (Chronic) Polycystic kidney, adult type (Chronic) Nonrheumatic mitral valve disorder, unspecified (Chronic) Dysthymic disorder (Chronic) Gastro-esophageal reflux disease without esophagitis (Chronic) Snoring (Chronic) Medical History (Updated 01/21/21 @ 04:52 by Johnny Henley MD) Blepharospasm Breast cancer screening by mammogram Chronic kidney disease, stage 2 (mild) Cough Diverticulosis Dyspnea, unspecified Dysthymic disorder Essential (primary) hypertension Fall Gastro-esophageal reflux disease without esophagitis Generalized anxiety disorder Hematoma and contusion History of meningioma of the brain Hypersomnia Hypothyroidism, unspecified Infectious mononucleosis Knee pain Measles Mumps Nicotine dependence Quit 2012 Nonrheumatic mitral valve disorder, unspecified Obesity, unspecified Osteopenia Polycystic kidney, adult type Skin cancer Snoring Whooping cough Surgical History History of cataract surgery (~12/2014) History of colonoscopy (~2016) History of laparoscopic cholecystectomy (~02/08/12) Family History Father , Age 62 Heart disease Mother , Age 83 Tumor Stroke Cancer of unknown origin Family/Other Heart disease "Siblings" Obesity "Siblings" Brother , age 62 Obesity Social History marital status: occupational status: [place] [employer] [place] smoking status stop date: 10/14/10 alcohol intake frequency: a few times a month substance use type: does not use MEDS/ALLERGIES Home Medications and Allergies Home Medications Medication Instructions Recorded Confirmed Type omeprazole 20 mg capsule,delayed 20 mg PO QDAY 08/04/19 01/21/21 History release carvedilol 12.5 mg PO BID 09/06/20 01/21/21 History venlafaxine 150 mg PO DAILY 09/06/20 01/21/21 History losartan 100 mg tablet 100 mg PO QHS tab 11/29/20 01/21/21 History levothyroxine 50 mcg tablet 50 mcg PO DAILY #90 tab 12/08/20 01/21/21 Rx Allergies Allergy/AdvReac Type Severity Reaction Status Date / Time No Known Drug Allergies Allergy Unknown Verified 11/29/20 08:34 [NO KNOWN DRUG ALLERGIES] Physical Examination Hip right: Tenderness with palpation: anterior, lateral and greater trochanter Pain with motion: internal rotation and hip flexion, internal rotation and hip extension, external rotation and hip flexion, external rotation and hip extension and other Results Labs Result Diagrams: 01/21/21 02:10 01/21/21 02:10 Labs: Abnormal lab results 01/21/21 01/21/21 Range/Units 02:10 02:22 WBC 11.7 H (4.5-11.0) K/mcL RBC 3.99 L (4.00-5.20) M/mcL Hgb 11.5 L (12.0-15.0) g/dL MPV 10.5 H (7.4-10.4) fL Neut % (Auto) 80.1 H (38.0-78.0) % Lymph % (Auto) 12.6 L (15.0-49.0) % Lymph # (Auto) 1.47 L (1.50-4.80) K/mcL Absolute Neutrophils 9.35 H (1.80-8.00) K/mcL Ethyl Alcohol 0.141 H (<0.010) gm/dL H & H 01/21/21 Range/Units 02:10 Hgb 11.5 L (12.0-15.0) g/dL Hct 36.1 (36.0-48.0) % Coagulation 01/21/21 Range/Units 02:10 INR 0.9 (0.9-1.1) All other labs normal. A/P Narrative A/P Narrative: Assessment: Ms wills is a 65 YO female with history of obesity, polycystic kidney disease and hypothyroid who sustained an unwitnessed ground level fall at home. options were presented to the patient including non-surgical which includes risks of non-union, loss of ROM in the right hip and pain. Surgical option was presented to the patient which includes open reduction internal fixation of the right hip fracture. At this time the patient is interested in surgery. surgical risks were explained to the patient which include but are not limited to: pain, bleeding, infection, stroke risk, cardiac complications, including MT, pulmonary complications including pneumonia and PE, blood clots including DVT, need for further surgery and implant failure, anesthesia reactions including not awaking from surgery and . Patient understands these risks and wishes to proceed with surgery. Plan: Plan is for right hip hemiarthroplasty to be performed semi-urgently by surgeon Dr. Moreno and Mukesh GARSIA this morning. Time Spent With Patient Time: Total time spent is greater than 50% in coordination of care (as documented) at patient's floor/unit and/or counseling patient:
--- NOTE | 2021-01-21 09:00 | XRay Report ---
INDICATION: Eval right hip fracture TECHNIQUE: AP pelvis. AP and crosstable lateral right hip COMPARISON: Previous CT scan dated 01/21/2021 FINDINGS: Right subcapital hip fracture. There is displacement with foreshortening and varus angulation deformity. Negative pelvis. Sacrum is negative. Sacroiliac joints are unremarkable. There is contrast material within the urinary bladder. There is a Vasquez catheter in place IMPRESSION: Displaced right subcapital hip fracture Interpreted and Authenticated by: Frandy Jimenez 01/21/21
[2021-01-21] MEDS ORDERED: cefTRIAXone 1 GM VIAL IV SCH (10:00)
[2021-01-21] MEDS ORDERED: AZITHROMYCIN 500 MG in DEXTROSE 5% IN WATER 250 ML IV SCH (11:00)
--- NOTE | 2021-01-21 11:08 | Discharge Summary ---
Discharge Provider Provider Patient information: Note initiated : 01/21/21 at 10:59 am Service Date, if different from initiated Date: [] Patient: Jyoti Martinez 65 y/o F admitted on 01/21/21 for right hip pain. Chief Complaint: [right hip pain] Date of admission: 01/21/21 05:06 Discharge date: 01/21/21 Primary care physician: Helder Mendez MD Discharge Meds Discharge Medications Home Medications omeprazole 20 mg capsule,delayed release 20 mg PO QDAY 08/04/19 [History Confirmed 01/21/21 Last Taken 01/20/21 07:00] carvedilol 12.5 mg PO BID 09/06/20 [History Confirmed 01/21/21 Last Taken 01/20/21 20:00] venlafaxine 150 mg PO DAILY 09/06/20 [History Confirmed 01/21/21 Last Taken 01/20/21 07:00] losartan 100 mg tablet 100 mg PO QHS tab 11/29/20 [History Confirmed 01/21/21 Last Taken 01/20/21 20:00] levothyroxine 50 mcg tablet 50 mcg PO DAILY #90 tab 12/08/20 [Rx Confirmed Last Taken 01/20/21 07:00] COURSE Hospital Course Hospital course: Jyoti Martinez Is a 65-year-old female with a history of hypertension polycystic kidney disease, hypothyroidism, GERD, dysthymic disorder, obesity, skin cancers (uncertain details but possibly melanoma), history of COVID-19 (August 2020), remote smoking history, s/p cholecystectomy who presented to the [facility] ED after a ground level fall at home and found to have a Subcapital hip fracture with angulation and di splacement. The patient was also to have a new oxygen requirement and cytosis on routine ED labs. Included CTA chest was ordered, there was no mention of pulmonary embolism however there was a large left hilar mass and findings consistent with left upper lobe postobstructive pneumonia. There were also bilateral lung nodules, multiple low-density liver lesions, a sclerotic density in T3 vertebral body, these could be metastatic lesions. Given the rapid progression from x-ray in August 2020 when the patient had COVID-19 this presentation could be consistent with an aggressive malignancy such as small cell lunger cancer. Radiology felt the same based on CT scan images. The patient was started on ceftriaxone and azithromycin for post obstructive pneumonia and oxygen supplementation requiring about 4 L/min nasal cannula. She remained hemodynamically stable and respiratory status was stable with oxygen supplementation. Orthopedic surgery was consulted for the right hip fracture. Anesthesiology did not feel comfortable proceeding with surgery and requested the patient be transferred to a higher level of care. The patient and her requested to be transferred to [facility] as first option. The patient was discussed with one call at [facility] and accepted for transfer. The patient was kept NPO while arranging transport to [facility] in case surgery is possible today. The patient requested transfer by flight. [facility] follow up; -Orthopedic surgery consult for right hip fracture. -Consider pulmonology consult for lung mass, possible EBUS. -Consider oncology consult for likely new lung cancer diagnosis. -Analgesics as needed. -Antibiotics for post obstructive pneumonia. -Clarify goals of care. Discharge diagnosis: Right hip fracture Secondary discharge diagnosis: Left hilar lung mass likely malignant Left upper lobe postobstructive pneumonia Liver lesions possibly metastatic disease Polycystic kidney disease Time Spent with Patient Time attestation: Total time spent providing and/or coordinating discharge services: EXAM Constitutional Vitals: Temp Pulse Resp BP Pulse Ox 98.5 F 65 15 140/81 93 01/21/21 06:38 01/21/21 06:38 01/21/21 06:38 01/21/21 06:38 01/21/21 07:45 Additional findings Additional findings: Head: Atraumatic, normal inspection. Eyes: normal appearance, no scleral icterus. Neck: full ROM Respiratory: on 4 l/min nasal canula, no respiratory distress. Cardiovascular: normal rate and rhythm, S1, S2. GI/Abdominal: soft, nontender, no guarding. Extremities: left hip tenderness, right leg shortened and externally rotated Neurological: CN II-XII intact, intact motor, intact sensation. Psychiatric: normal mood. Skin: innumerable small moles Discharge Data Data Completed and Pending Labs on day of discharge: Labs from last 24 hours 01/21/21 01/21/21 01/21/21 02:22 02:11 02:11 WBC RBC Hgb Hct MCV MCH MCHC RDW Plt Count MPV Neut % (Auto) Lymph % (Auto) Parker % (Auto) Eos % (Auto) Baso % (Auto) Lymph # (Auto) Parker # (Auto) Eos # (Auto) Baso # (Auto) Absolute Neutrophils PT INR Patient Temperature Pending ABG pH Pending ABG pH (Temp Correct) Pending ABG pCO2 Pending ABG pCO2 (Temp Corrct Pending ABG pO2 Pending ABG pO2 (Temp Correct Pending ABG HCO3 Pending ABG Total CO2 Pending ABG O2 Saturation Pending ABG Base Excess Pending ABG Methemoglobin Pending Carboxyhemoglobin Pending Total Hemoglobin Pending Respiration Rate Pending O2 Delivery Method Pending Vent Mode Pending FiO2 Pending Tidal Volume Pending PEEP Pending Sodium Potassium Chloride Carbon Dioxide Anion Gap BUN Creatinine POC Creatinine GFR Calculation Glucose Calcium Total Bilirubin AST ALT Alkaline Phosphatase Troponin T < 0.01 Total Protein Albumin Globulin Albumin/Globulin Ratio Ethyl Alcohol 0.141 H 01/21/21 01/21/21 01/21/21 02:10 02:10 02:10 WBC 11.7 H RBC 3.99 L Hgb 11.5 L Hct 36.1 MCV 90.5 MCH 28.8 MCHC 31.9 RDW 12.7 Plt Count 170 MPV 10.5 H Neut % (Auto) 80.1 H Lymph % (Auto) 12.6 L Parker % (Auto) 6.6 Eos % (Auto) 0.4 Baso % (Auto) 0.3 Lymph # (Auto) 1.47 L Parker # (Auto) 0.77 Eos # (Auto) 0.05 Baso # (Auto) 0.03 Absolute Neutrophils 9.35 H PT 12.8 INR 0.9 Patient Temperature ABG pH ABG pH (Temp Correct) ABG pCO2 ABG pCO2 (Temp Corrct ABG pO2 ABG pO2 (Temp Correct ABG HCO3 ABG Total CO2 ABG O2 Saturation ABG Base Excess ABG Methemoglobin Carboxyhemoglobin Total Hemoglobin Respiration Rate O2 Delivery Method Vent Mode FiO2 Tidal Volume PEEP Sodium 140 Potassium 3.5 Chloride 104 Carbon Dioxide 24 Anion Gap 12.0 BUN 18 Creatinine 0.9 POC Creatinine 1.1 GFR Calculation 66 Glucose 97 Calcium 8.9 Total Bilirubin 0.2 AST 17 ALT 14 Alkaline Phosphatase 70 Troponin T Total Protein 6.7 Albumin 4.1 Globulin 2.6 Albumin/Globulin Ratio 1.6 Ethyl Alcohol Discharge Plan Patient/Caregiver Discharge Instructions Activity: non-weight bearing Diet: NPO Instructions: Hip Fracture (ED), ORIF of Hip Fracture (DC) Prescriptions: Continued levothyroxine [Synthroid] 50 mcg tablet 50 mcg PO DAILY Qty: 90 RF: 1 omeprazole 20 mg capsule,delayed release(DR/EC) 20 mg PO QDAY RF: 0 losartan 100 mg tablet 100 mg PO QHS RF: 0 carvedilol 12.5 mg tablet 12.5 mg PO BID RF: 0 venlafaxine 150 mg capsule,extended release 24hr 150 mg PO DAILY RF: 0 Follow Up Plan Follow up with: Helder Mendez MD [Primary Care Provider] - Patient Disposition: [facility] Prognosis: Serious Rehab Potential: Serious Overall status at discharge: patient is not back to baseline Discharge Orders: Discharge Order (Routine); Ordered 01/21/21 Ordered By: Tej Dotson
[2021-01-21] MEDS: CARVEDILOL 12.5 MG TABLET PO SCH ×2 (13:31→17:30)
[2021-01-21] MEDS ORDERED: LOSARTAN 50 MG TABLET PO SCH (21:00)
[2021-01-22] MEDS ORDERED: OMEPRAZOLE 20 MG CAPSULE PO SCH (07:30)
[2021-01-22] MEDS ORDERED: LEVOTHYROXINE 50 MCG TABLET PO SCH (07:30)
[2021-01-22] MEDS ORDERED: VENLAFAXINE 150 MG CAP.XL.24H PO SCH (09:00)
== END 2021-01-21 17:30 | disposition short-term general hospital (02) | DRG 535 ==
LOC: ED 01:40 → MEDSUR 05:06
PROVIDERS: ADMIT Internal Medicine; ATTEND Internal Medicine